=== PATIENT | male | born 1935 | race Caucasian/White ===

== ENCOUNTER → 2017-06-22 08:11 | Outpatient (CLI) | payer MEDICARE, SELFPAY ==
[2017-06-22 10:04] LABS: Hematocrit 45.6 % (40-54); Hemoglobin 15.8 g/dl (13.0-16.5); Mean Corp Hgb Conc 34.6 g/gl (32-36); Mean Corpuscular Hgb 31.5 pg (27.0-32.0); Platelet Count 201 K/mm3 (150-450); RBC Distribution Width CV 12.7 % (11.6-14.6); RBC Distribution Width SD 41.5 fl (35.1-43.9); Red Blood Count 5.01 M/mm3 (4.6-6.2); White Blood Count 5.5 K/mm3 (4.4-11.0)
[2017-06-22 10:06] LABS: International Normalized Ratio 0.9; Prothrombin Time (Protime)PT. 12.2 SECONDS (11.7-14.9)
[2017-06-22 10:08] LABS: Scan Indicated on CBC? Y/N NO
[2017-06-22 10:18] LABS: AST(SGOT) 17 U/L (15-37); Alanine Aminotransfer ALT/SGPT 28 U/L (16-61); Albumin, Serum 3.9 g/dL (3.2-5.0); Alkaline Phosphatase 83 U/L (45-117); Anion Gap 5 (5-15); BUN 25 mg/dL (7-18); BUN/Creat Ratio 24.5 RATIO (10-20); Bilirubin, Direct 0.12 mg/dL (0.00-0.30); Chloride 104 mmol/L (98-107); Cholesterol 196 mg/dL (200); Creatinine, Serum 1.02 mg/dL (0.70-1.30); EST Glomerular Filtration Rate 75 mL/min (>60); Est Glom Filt Rate - Afr Amer 90 mL/min (>60); Globulin 3.2 g/dL (2.2-4.2); Glucose 101 mg/dL (70-110); High Density Lipoprotein 33 mg/dL; Potassium 5.1 mmol/L (3.5-5.1); Protein, Total 7.1 g/dL (6.4-8.2); Sodium Level 140 mmol/L (136-145); Triglycerides 220 mg/dL; Very Low Density Lipoprotein 44 mg/dL (5-40)
== END ==
PROVIDERS: Family Provider Internal Medicine; PCP Internal Medicine; Visit Provider Internal Medicine Cardiovascular Disease
DX: E78.5 Hyperlipidemia, unspecified (principal); Z79.899 Other long term (current) drug therapy; R94.39 Abnormal result of other cardiovascular function study; R07.9 Chest pain, unspecified; R07.89 Other chest pain; I25.118 Atherosclerotic heart disease of native coronary artery with other forms of angina pectoris; Z95.5 Presence of coronary angioplasty implant and graft
CPT/HCPCS: 36415; 80048; 80061; 80076; 85027; 85610; 85730

== ENCOUNTER → 2018-01-16 08:17 | Outpatient (CLI) | payer MEDICARE, SELFPAY ==
[2018-01-16 10:44] LABS: AST(SGOT) 20 U/L (15-37); Alanine Aminotransfer ALT/SGPT 23 U/L (16-61); Albumin, Serum 3.9 g/dL (3.2-5.0); Alkaline Phosphatase 89 U/L (45-117); Bilirubin, Direct 0.08 mg/dL (0.00-0.30); Cholesterol 210 mg/dL (200); Globulin 3.2 g/dL (2.2-4.2); High Density Lipoprotein 30 mg/dL; Protein, Total 7.1 g/dL (6.4-8.2); Triglycerides 201 mg/dL; Very Low Density Lipoprotein 40 mg/dL (5-40)
== END ==
PROVIDERS: Nurse Practitioner Family; Family Provider Internal Medicine; PCP Internal Medicine; Visit Provider Internal Medicine Cardiovascular Disease
DX: E78.5 Hyperlipidemia, unspecified (principal); Z79.899 Other long term (current) drug therapy
CPT/HCPCS: 36415; 80061; 80076

== ENCOUNTER → 2018-03-10 08:28 | Outpatient (CLI) | payer MEDICARE, SELFPAY ==
[2018-03-10 11:10] LABS: AST(SGOT) 22 U/L (15-37); Alanine Aminotransfer ALT/SGPT 29 U/L (16-61); Albumin, Serum 3.9 g/dL (3.2-5.0); Alkaline Phosphatase 87 U/L (45-117); Bilirubin, Direct 0.15 mg/dL (0.00-0.30); Cholesterol 136 mg/dL (200); Globulin 3.1 g/dL (2.2-4.2); High Density Lipoprotein 32 mg/dL; Triglycerides 145 mg/dL; Very Low Density Lipoprotein 29 mg/dL (5-40)
== END ==
PROVIDERS: Physician Assistant Medical; Family Provider Internal Medicine; PCP Internal Medicine; Referring Provider Internal Medicine Cardiovascular Disease; Visit Provider Internal Medicine Cardiovascular Disease
DX: E78.5 Hyperlipidemia, unspecified (principal)
CPT/HCPCS: 80061; 80076

== ENCOUNTER → 2018-06-13 10:42 | Outpatient (CLI) | payer MEDICARE, SELFPAY ==
[2018-05-04 14:04] VITALS: BMI 22.7
--- NOTE | 2018-06-13 10:52 | RAD_ITS ---
STUDY: X-RAY CHEST REASON FOR EXAM: Male, 82 years old. Cough. Positive for the flu. TECHNIQUE: PA and lateral views of the chest. COMPARISON: None. FINDINGS: Hyperinflation. Decreased bilateral bronchovascular markings suggestive of emphysema. There is no demonstrated pleural abnormality. Normal size heart. Normal mediastinum and betty. There is prominence of the pulmonary hilar arteries without peripheral pulmonary vascular congestion, suggesting pulmonary hypertension. There is atherosclerotic calcification of the aortic arch with tortuosity. There are diffuse degenerative changes of the visualized thoracic spine. Normal visualized ribs, clavicles, and shoulders. There is no demonstrated abnormality of the visualized soft tissue structures of the upper abdomen. RAD/Chest PA and Lateral IMPRESSION: Hyperinflation. Electronically Signed: Jonas Elliott MD at 11:09 EST Tel [phone], Service support ,
--- OUTSIDE RECORDS SUMMARY | 2018-08-15 13:39 | XMS RPT_ITS ---
:1935 Author Organization [place] Care Team Providers Name Role Phone No Allen Attending Unavailable No Allen Consulting Unavailable Soumya Burgess Attending Unavailable Jojo García Referring Unavailable No Allen Attending Unavailable No Allen Referring Unavailable Jojo García Primary Care Unavailable Cade Kendrick Attending Unavailable Cade Kendrick Referring Unavailable Jojo García Primary Care Unavailable Jeane Macias Attending Unavailable Jeane Macias Attending Unavailable Soumya Burgess Attending Unavailable Jojo García Referring Unavailable Ricky, Jojo Primary Care Unavailable Cade Kendrick Attending Unavailable Cade Kendrick Referring Unavailable Jojo García Primary Care Unavailable Cade Kendrick Attending Unavailable Cade Kendrick Referring Unavailable Jojo García Primary Care Unavailable Soumya Burgess Attending Unavailable Jojo García Referring Unavailable Jojo García Primary Care Unavailable Purpose Purpose PROBLEMS PROBLEMS DATE TYPE CONDITION / CODE ATTENDING STATUS SOURCE 01/18/2018 Unknown E78.5 - Cade Kendrick Active [place] Hyperlipidemia, Community unspecified / Hospital E78.5(ICD-10) Repository 01/18/2018 Unknown 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 / Repository Z79.899(ICD-10) PROCEDURES PROCEDURES No Procedure Records FoundVITAL SIGNS VITAL SIGNS No Vital Signs Records FoundRESULTS RESULTS CHEST PA AND LATERAL Observed: 06/13/2018 Status: F Source: [place] 10:53 AM [facility] REPOSITORY [facility] Imaging Services [address] [place] [address] Chest PA and Lateral MR#: [id number] Acct: [id number] Name: ANDRÉSRYAN Kern Rep #: [id number] : 1935 M 82 From: Jonas Elliott MD PCP: Jojo García DO Status: REG CLI Study: Chest PA and Lateral Date of Exam: 06/13/18 Exam# [id number] Ordering Dr: No Allen VEHICLE REFINISHER-Leonardo STUDY: X-RAY CHEST REASON FOR EXAM: Male, 82 years old. Cough. Positive for the flu. TECHNIQUE: PA and lateral views of the chest. COMPARISON: None. FINDINGS: Hyperinflation. Decreased bilateral bronchovascular markings suggestive of emphysema. There is no demonstrated pleural abnormality. Normal size heart. Normal mediastinum and betty. There is prominence of the pulmonary hilar arteries without peripheral pulmonary vascular congestion, suggesting pulmonary hypertension. There is atherosclerotic calcification of the aortic arch with tortuosity. There are diffuse degenerative changes of the visualized thoracic spine. Normal visualized ribs, clavicles, and shoulders. There is no demonstrated abnormality of the visualized soft tissue structures of the upper abdomen. RAD/Chest PA and Lateral IMPRESSION: Hyperinflation. Electronically Signed: Jonas Elliott MD at 11:09 EST Tel [phone], Service support , CC: No Allen VEHICLE REFINISHER; Jojo García DO Blueprint Duplicator: Signed CARDIOLOGY VISIT Observed: 05/06/2018 Status: F Source: [place] REPORT 9:34 AM [facility] REPOSITORY [facility] [address] [place] [address] OFFICE VISIT Date of Service: 05/04/18 MR#: [id number] Acct: [id number] Name: RYAN BOWEN Rep #: [id number] : 1935 Provider: Soumya Burgess Age/Sex: 82/M Location: [facility] [place] Status: Signed HPI HPI Details: RYAN BOWEN, is a 82 M who presents to the office today for a cardiovascular follow-up. She is a history of coronary artery disease with stenting to his RCA in 2008. He also has a history of marked sinus bradycardia, aortic sclerosis, hypertension and hyperlipidemia. Patient had a stress test in May 2017 which demonstrated myocardial perfusion changes compatible with area of previous myocardial injury involving portions of the inferior basal septal, inferobasal segment segments with post stress-induced perfusion changes. Compatible with an area of quintin-infarct related to myocardial ischemia. Because of the chest discomfort that precipitated the event of the stress test it was recommended that he undergo a heart catheterization. Because he was able to walk 3-4 miles a day on the treadmill without any difficulty he declined heart catheterization. He wished to be managed medically if he had any symptoms he would let our office know. Pt sts that he has been active. He has been chopping wood and moving it in a wheel barrel with out any problems. He does not have any worsening SOB. He does occasionally have positional dizziness.He does not have any palpitations. He does not have any claudication or edema. Intake Vital Signs05/04/18 Height 5 ft 7 in 05/04/18 Weight: 145 lb 05/04/18 Body Mass Index (BMI) 22.7 05/04/18 Blood Pressure 124/72 H Intake Visit Reasons: 6 m Product Merchandiser Required: No Accompanied by: Is patient in pain?: No Allergies Sulfa (Sulfonamide Antibiotics) Adverse Reaction (Intermediate, Verified 05/04/18 14:09) nausea and vomiting isosorbide Adverse Reaction (Verified 05/04/18 14:09) FELIPE Medications aspirin 325 mg tablet 325 mg PO QDAY 05/25/17 [History Confirmed 05/04/18] cholecalciferol (vitamin D3) 400 unit capsule 400 unit PO QDAY 05/25/17 [History Confirmed 05/04/18] coenzyme Q10 100 mg capsule 100 mg PO QDAY 05/25/17 [History Confirmed 05/04/18] glucosamine sulfate 500 mg tablet 500 mg PO QDAY tab 05/25/17 [History Confirmed 05/04/18] magnesium oxide 400 mg capsule 400 mg PO QDAY cap 05/25/17 [History Confirmed 05/04/18] nitroglycerin 0.4 mg sublingual tablet 0.4 mg SUBLINGUAL Q5- 15M PRN #25 tab 05/25/17 [Rx Confirmed 05/04/18] omeprazole 20 mg capsule,delayed release 20 mg PO QDAY 05/25/17 [History Confirmed 05/04/18] zinc gluconate 100 mg tablet 100 mg PO QDAY tab 05/25/17 [History Confirmed 05/04/18] clopidogrel 75 mg tablet 75 mg PO QDAY #90 tab 01/25/18 [Rx Confirmed 05/04/18] lisinopril 10 mg tablet 10 mg PO BID #180 tab 01/25/18 [Rx Confirmed 05/04/18] pravastatin 80 mg tablet 80 mg PO QHS #90 tab 03/10/18 [Rx Confirmed 05/04/18] Ejection fraction %: 65 to 70 [facility] Medical History Asthma (Chronic) Aortic valve disease (Chronic) Sinus bradycardia (Chronic) Murmur (Chronic) Dyspnea, unspecified (Chronic) MCC use of drug (Chronic) Abnormal stress test (Chronic) Chest pain (Chronic) Hyperlipidemia (Chronic) Hypertension (Chronic) History of myocardial infarction (Chronic) Atherosclerotic heart disease of [place] coronary artery with other forms of angina pectoris (Chronic) Palpitations (Chronic) Chest pressure (Chronic) Anxiety (Chronic) GERD (gastroesophageal reflux disease) (Chronic) History of rheumatic fever (Chronic) Ventricular tachycardia (Chronic) Surgical History History of coronary artery stent placement (Chronic) History of tonsillectomy and adenoidectomy (Chronic) Family History Father CAD (coronary artery disease) Mother CAD (coronary artery disease) Myocardial infarction Social History Smoking Status: Never smoker alcohol intake: current alcohol intake frequency: 0-2 drinks per day Alcohol type: beer, wine substance use type: does not use caffeine: Yes Type: tea ROS Const Const: Negative for weakness, fatigue, fever(s) or headache(s) Eyes Eyes: Negative for blind spots, loss of peripheral vision or transient loss of vision ENT ENT: Negative for headache(s) Cardio Chest Pain: No Palpitations: No Edema: None Muscle aches with walking: None Resp Respiratory: Negative for SOB with activity, SOB at rest, SOB orthopnea\SOB lying down or Cough GI GI: Negative nausea, vomiting, heartburn or vomiting blood/hematemesis : Negative for hematuria Musc Musc: Negative for muscle aches/ myalgia Neuro Neuro: Negative for weakness or headache(s) Carlos Hematologic/Lymphatic: Negative for easy bleeding Endo Endo: Negative for fatigue Cardiology Exam Const Appearance: cooperative, no acute distress and well developed Orientation: alert, awake and oriented x3 Head Head: normocephalic and atraumatic Mouth: moist mucous membranes Eyes General: appearance normal, both eyes and all related structures Conjunctivae: conjunctivae normal Pupils: PERRL EOM: EOM intact bilaterally Neck Neck: normal visual inspection, no lymphadenopathy and no JVD Carotids: Negative bruit Neck Mass: Negative Neck mass Chest Chest inspection: normal inspection of the chest and symmetric chest movement Auscultation: Bilateral: Clear to Auscultation Cardio Palpation: normal PMI Rate: regular rate Rhythm: regular rhythm Heart sounds: S1 normal, S2 normal and murmur; negative rub or gallop Murmur: Grade 1/6, soft and mid systolic GI GI: normal to inspection, soft, no hepatosplenomegaly and bowel sounds present; negative tender Neuro General: alert, awake, oriented x3, CN's II-XI intact bilaterally and moves all extremities Extremities Pulses: Normal: Right Posterior Tibial Pulse, Left Posterior Tibial Pulse, Right Radial Pulse, Left Radial Pulse Lower Extremity Edema: None: Bilateral Psych Psychological: normal affect Assessment AND Plan 1. Atherosclerotic heart disease of [place] coronary artery with other forms of angina pectoris I25.118 ANDREY to RCA 10/28/[address] Loomis Plan Stable, from a cardiac standpoint patient does not have any symptoms of angina. We recommend that they continue with current aggressive medical management and risk factor modification. 2. Essential hypertension I10 Plan Blood pressure is well controlled on current medications, we do not recommend any changes at this time. 3. Pure hypercholesterolemia E78.00 Plan Recent lipid profile demonstrates total cholesterol 136, HDL 32, LDL 75. Patient will continue with current high intensity statin. We will continue to monitor. Plan Detail Additional Comments Thank you for allowing us to participate in patient's plan of care, if you have any questions please do not hesitate to call. This note was generated using a voice recognition system and there may be incorrect words, spelling or punctuation errors that were not noted when reviewing the office note prior to saving. Follow Up 05/04/18 (keep as is) Coding Level of Care Code Off vis,est,level 3 Diagnoses Atherosclerotic heart disease of [place] coronary artery with other forms of angina pectoris I25.118 Essential hypertension I10 Hypertension type: essential hypertension Pure hypercholesterolemia E78.00 Hyperlipidemia type: pure hypercholesterolemia Coding Level of Care Code Off vis,est,level 3 Diagnoses Atherosclerotic heart disease of [place] coronary artery with other forms of angina pectoris I25.118 Essential hypertension I10 Hypertension type: essential hypertension Pure hypercholesterolemia E78.00 Hyperlipidemia type: pure hypercholesterolemia 05/06/18 0934 <Electronically signed by Soumya DARLING> Date Soumya DARLING [facility] Signature: Date (if applicable) CC: Jojo García DO LIVER PROFILE Collected: 03/10/2018 Status: F Source: [place] 8:54 AM [facility] REPOSITORY Order Comment: Comments: resumed Pravastatin Comments: Resumed Pravastatin Comments: resumed Pravastatin TYPE CODE TESTS RESULT OUT OF RANGE REFERENCE UNITS LAB L501.1500 6.4-8.2 g/dL Normal T PROT 7.0 LAB L501.1800 3.2-5.0 g/dL Normal ALB 3.9 LAB L501.1950 2.2-4.2 g/dL Normal GLOB 3.1 LAB L501.4100 15-37 U/L Normal AST 22 LAB L501.4305 45-117 U/L Normal ALK P 87 LAB L501.4405 16-61 U/L Normal ALT 29 LAB L501.4600 0.20-1.00 mg/dL Normal T BILI 0.70 LAB L501.4700 0.00-0.30 mg/dL Normal D BILI 0.15 Performed By: #### L500.3400, L500.4100 #### [facility] [address] [facility] [place], [place], [id number] LIPID PROFILE Collected: 03/10/2018 Status: F Source: [place] 8:54 AM [facility] REPOSITORY Order Comment: Comments: resumed Pravastatin Comments: Resumed Pravastatin Comments: resumed Pravastatin TYPE CODE TESTS RESULT OUT OF RANGE REFERENCE UNITS LAB L501.4900 200 mg/dL Normal CHOL 136 Result Comment: <200 mg/dL Desirable 200-240 mg/dL Borderline >240 mg/dL High Risk LAB L501.5000 mg/dL Normal TRIG 145 Result Comment: The drugs N-Acetylcysteine and Metamizole may falsely depress this assay. Serum Triglycerides Reference Interval Normal <150 mg/dL Borderline high 150 - 199 mg/dL High 200 - 499 mg/dL Very High > or = 500 mg/dL LAB L501.6400 mg/dL Low HDL 32 Result Comment: The drugs N-Acetylcysteine and Metamizole may falsely depress this assay. Reference Range HDL <40 mg/dL Low HDL Cholesterol HDL >or= 60 mg/dL High HDL Cholesterol LAB L501.6500 0-130 mg/dL Normal LDL 75 LAB L501.6600 5-40 mg/dL Normal VLDL 29 Performed By: #### L500.3400, L500.4100 #### [facility] [address] [place], [place], [address] LIVER PROFILE Collected: 01/16/2018 Status: F Source: [place] 8:21 AM [facility] REPOSITORY TYPE CODE TESTS RESULT OUT OF RANGE REFERENCE UNITS LAB L501.1500 6.4-8.2 g/dL Normal T PROT 7.1 LAB L501.1800 3.2-5.0 g/dL Normal ALB 3.9 LAB L501.1950 2.2-4.2 g/dL Normal GLOB 3.2 LAB L501.4100 15-37 U/L Normal AST 20 LAB L501.4305 45-117 U/L Normal ALK P 89 LAB L501.4405 16-61 U/L Normal ALT 23 LAB L501.4600 0.20-1.00 mg/dL Normal T BILI 0.50 LAB L501.4700 0.00-0.30 mg/dL Normal D BILI 0.08 Performed By: #### L500.3400, L500.4100 #### [facility] [address] [place], [place], [address] LIPID PROFILE Collected: 01/16/2018 Status: F Source: [place] 8:21 AM [facility] REPOSITORY TYPE CODE TESTS RESULT OUT OF RANGE REFERENCE UNITS LAB L501.4900 200 mg/dL High CHOL 210 Result Comment: <200 mg/dL Desirable 200-240 mg/dL Borderline >240 mg/dL High Risk LAB L501.5000 mg/dL High TRIG 201 Result Comment: The drugs N-Acetylcysteine and Metamizole may falsely depress this assay. Serum Triglycerides Reference Interval Normal <150 mg/dL Borderline high 150 - 199 mg/dL High 200 - 499 mg/dL Very High > or = 500 mg/dL LAB L501.6400 mg/dL Low HDL 30 Result Comment: The drugs N-Acetylcysteine and Metamizole may falsely depress this assay. Reference Range HDL <40 mg/dL Low HDL Cholesterol HDL >or= 60 mg/dL High HDL Cholesterol LAB L501.6500 0-130 mg/dL High LDL 140 LAB L501.6600 5-40 mg/dL Normal VLDL 40 Performed By: #### L500.3400, L500.4100 #### [facility] [address] [place], [address] CARDIOLOGY VISIT Observed: 10/12/2017 Status: F Source: [place] REPORT 5:04 PM [facility] REPOSITORY [facility] [address] [place] [address] OFFICE VISIT Date of Service: 10/11/17 MR#: [id number] Acct: [id number] Name: RYAN BOWEN Rep #: [id number] : 1935 Provider: Soumya Burgess Age/Sex: 81/M Location: [facility] [place] Status: Signed HPI HPI Details: RYAN BOWEN, is a 81 M who presents to the office today for a cardiovascular follow-up. She is a history of coronary artery disease with stenting to his RCA in 2008. He also has a history of marked sinus bradycardia, aortic sclerosis, hypertension and hyperlipidemia. Patient had a stress test in May 2017 which demonstrated myocardial perfusion changes compatible with area of previous myocardial injury involving portions of the inferior basal septal, inferobasal segment segments with post stress-induced perfusion changes. Compatible with an area of quintin-infarct related to myocardial ischemia. Because of the chest discomfort that precipitated the event of the stress test it was recommended that he undergo a heart catheterization. Because he was able to walk 3-4 miles a day on the treadmill without any difficulty he declined heart catheterization. He wished to be managed medically if he had any symptoms he would let our office know. He sts that he is walking on the treadmill every day, but his has been having issues with is knee, He is also adding the nu step. He is concerned about the pravastatin, he sts that is causes nausea, pain under his right rib, and feeling a water ballon was there when he walked on the treadmill. He has not been taking it for several months. His symptoms improved. He sts that when he resumed the medication it for 2 day, his symptoms came back. He has since stopped and has not had symptoms. He had a FELIPE with his isosorbide, he has since stopped taking this also. This has been a few months also. He does not have any worsening SOB. He has not had any chest pain/heaviness/tightness. He does not have any palpitations that he is aware of. He does not have any near syncope/syncope. He does not have any edema or claudication. Intake Vital Signs10/11/17 Height 5 ft 7 in 10/11/17 Weight: 144 lb 10/11/17 Body Mass Index (BMI) 22.5 10/11/17 Blood Pressure 148/80 10/11/17 Blood Pressure Location Lt brachial Intake Visit Reasons: 6 M Product Merchandiser Required: No Accompanied by: Is patient in pain?: No Allergies pravastatin Adverse Reaction (Intermediate, Verified 10/11/17 15:38) Abd cramps/diarrhea Sulfa (Sulfonamide Antibiotics) Adverse Reaction (Intermediate, Verified 10/11/17 15:04) nausea and vomiting isosorbide Adverse Reaction (Verified 10/11/17 15:38) FELIPE Medications aspirin 325 mg tablet 325 mg PO QDAY 05/25/17 [History Confirmed 10/11/17] cholecalciferol (vitamin D3) 400 unit capsule 400 unit PO QDAY 05/25/17 [History Confirmed 10/11/17] clopidogrel 75 mg tablet 75 mg PO QDAY 05/25/17 [History Confirmed 10/11/17] coenzyme Q10 100 mg capsule 100 mg PO QDAY 05/25/17 [History Confirmed 10/11/17] glucosamine sulfate 500 mg tablet 500 mg PO QDAY tab 05/25/17 [History Confirmed 10/11/17] lisinopril 10 mg tablet 10 mg PO BID #180 tab 05/25/17 [Rx Confirmed 10/11/17] magnesium oxide 400 mg capsule 400 mg PO QDAY cap 05/25/17 [History Confirmed 10/11/17] nitroglycerin 0.4 mg sublingual tablet 0.4 mg SUBLINGUAL Q5- 15M PRN #25 tab 05/25/17 [Rx Confirmed 10/11/17] omeprazole 20 mg capsule,delayed release 20 mg PO QDAY 05/25/17 [History Confirmed 10/11/17] zinc gluconate 100 mg tablet 100 mg PO QDAY tab 05/25/17 [History Confirmed 06/16/17] Ejection fraction %: 65 to 70 (65% [facility] 03[facility]31[facility]2010 [facility] Medical History Asthma (Chronic) Aortic valve disease (Chronic) Sinus bradycardia (Chronic) Murmur (Chronic) Dyspnea, unspecified (Chronic) MCC use of drug (Chronic) Abnormal stress test (Chronic) Chest pain (Chronic) Hyperlipidemia (Chronic) Hypertension (Chronic) History of myocardial infarction (Chronic) Atherosclerotic heart disease of [place] coronary artery with other forms of angina pectoris (Chronic) Palpitations (Chronic) Chest pressure (Chronic) Anxiety (Chronic) GERD (gastroesophageal reflux disease) (Chronic) History of rheumatic fever (Chronic) Ventricular tachycardia (Chronic) Surgical History History of coronary artery stent placement (Chronic) History of tonsillectomy and adenoidectomy (Chronic) Family History Father CAD (coronary artery disease) Mother CAD (coronary artery disease) Myocardial infarction Social History Smoking Status: Never smoker alcohol intake: current alcohol intake frequency: 0-2 drinks per day Alcohol type: beer, wine substance use type: does not use ROS Const Const: Positive for headache(s); negative for weakness, fatigue or fever(s) Eyes Eyes: Negative for blind spots, loss of peripheral vision or transient loss of vision ENT ENT: Positive for headache(s); negative for dizziness, tinnitus or Nosebleed/epistaxis Cardio Chest Pain: No Palpitations: No Edema: None Muscle aches with walking: None Resp Respiratory: Negative for SOB with activity, SOB at rest, SOB orthopnea\SOB lying down or Cough GI GI: Positive for nausea; negative vomiting, heartburn or vomiting blood/hematemesis : Negative for hematuria Musc Musc: Negative for muscle aches/ myalgia Neuro Neuro: Positive for headache(s); negative for weakness, dizziness, near syncope, syncope, lightheadedness or orthostatic symptoms Carlos Hematologic/Lymphatic: Negative for easy bleeding Endo Endo: Negative for fatigue Cardiology Exam Const Appearance: cooperative, no acute distress and well developed Orientation: alert, awake and oriented x3 Head Head: normocephalic and atraumatic Mouth: moist mucous membranes Eyes General: appearance normal, both eyes and all related structures Conjunctivae: conjunctivae normal Pupils: PERRL EOM: EOM intact bilaterally Neck Neck: normal visual inspection, no lymphadenopathy and no JVD Carotids: Negative bruit Neck Mass: Negative Neck mass Chest Chest inspection: normal inspection of the chest and symmetric chest movement Auscultation: Bilateral: Clear to Auscultation Cardio Palpation: normal PMI Rate: regular rate Rhythm: regular rhythm Heart sounds: S1 normal, S2 normal and murmur; negative rub or gallop Murmur: Grade 1/6, soft and mid systolic GI GI: normal to inspection, soft, no hepatosplenomegaly and bowel sounds present; negative tender Neuro General: alert, awake, oriented x3, CN's II-XI intact bilaterally and moves all extremities Extremities Pulses: Normal: Right Posterior Tibial Pulse, Left Posterior Tibial Pulse, Right Radial Pulse, Left Radial Pulse Lower Extremity Edema: None: Bilateral Psych Psychological: normal affect Assessment AND Plan 1. Atherosclerosis of [place] coronary artery of [place] heart without angina pectoris I25.10 Plan Patient does keep himself very active. He does not have any symptoms of angina. He will let us know if he has any symptoms. Did review symptoms to look for. Will not make any adjustments at this time. 2. Essential hypertension I10 Plan Blood pressure is well controlled on current medications, we do not recommend any changes at this time. 3. Pure hypercholesterolemia E78.00 Plan Patient has been intolerant to pravastatin. He would like to see what his lipids are at his next check. If they are elevated he is agreeable to try another medication. Will monitor closely. 4. Aortic valve disease I35.9 Plan Stable, will continue to monitor by history, exam and echocardiograms as deemed appropriate. Plan Detail Additional Comments Thank you for allowing us to participate in patient's plan of care, if you have any questions please do not hesitate to call. This note was generated using a voice recognition system and there may be incorrect words, spelling or punctuation errors that were not noted when reviewing the office note prior to saving. Follow Up 6 Months (MMM) 1 Year (PFM) Coding Level of Care Code Off vis,est,level 3 Diagnoses Atherosclerosis of [place] coronary artery of [place] heart without angina pectoris I25.10 [place] vs. transplanted heart: [place] heart Essential hypertension I10 Hypertension type: essential hypertension Pure hypercholesterolemia E78.00 Hyperlipidemia type: pure hypercholesterolemia Aortic valve disease I35.9 Coding Level of Care Code Off vis,est,level 3 Diagnoses Atherosclerosis of [place] coronary artery of [place] heart without angina pectoris I25.10 [place] vs. transplanted heart: [place] heart Essential hypertension I10 Hypertension type: essential hypertension Pure hypercholesterolemia E78.00 Hyperlipidemia type: pure hypercholesterolemia Aortic valve disease I35.9 10/12/17 1354 <Electronically signed by Soumya DARLING> Date Soumya Hale Signature: Date (if applicable) CC: Jojo García CBC-COMPLETE BLOOD CNT Collected: 06/22/2017 Status: F Source: [place] NO DIFF 8:27 AM [facility] REPOSITORY TYPE CODE TESTS RESULT OUT OF RANGE REFERENCE UNITS LAB L100.1000 4.4-11.0 K/mm3 Normal WBC 5.5 LAB L100.1200 4.6-6.2 M/mm3 Normal RBC 5.01 LAB L100.1300 13.0-16.5 g/dl Normal HGB 15.8 LAB L100.1400 40-54 % Normal HCT 45.6 LAB L100.1500 80-94 fL Normal MCV 91.0 LAB L100.1600 27.0-32.0 pg Normal MCH 31.5 LAB L100.1700 32-36 g/gl Normal MCHC 34.6 LAB L100.1810 11.6-14.6 % Normal RDW CV 12.7 LAB L100.1820 35.1-43.9 fl Normal RDW SD 41.5 LAB L100.1900 150-450 K/mm3 Normal PLT 201 LAB L100.2000 6.2-12.0 fl Normal MPV 11.0 Performed By: #### L100.0500, L300.3900, L300.4310 #### [facility] [address] [place], [place], [id number] PROTHROMBIN TIME W/INR Collected: 06/22/2017 Status: F Source: [place] 8:27 AM [facility] REPOSITORY TYPE CODE TESTS RESULT OUT OF RANGE REFERENCE UNITS LAB L300.4150 11.7-14.9 SECONDS Normal PROTIME 12.2 LAB L300.4200 Normal INR 0.9 Performed By: #### L100.0500, L300.3900, L300.4310 #### [facility] [address] [place], [place], [id number] PARTIAL THROMBOPLAST Collected: 06/22/2017 Status: F Source: [place] TIME 8:27 AM [facility] REPOSIT[facility] TYPE CODE TESTS RESULT OUT OF RANGE REFERENCE UNITS LAB L300.4310 24.1-36.2 Seconds Normal PTT 27.0 Performed By: #### L100.0500, L300.3900, L300.4310 #### [facility] [address] [place], [place], [address] BASIC METABOLIC Collected: 06/22/2017 Status: F Source: [place] PROFILE (BMP) 8:27 AM [facility] REPOSITORY Order Comment: Order Date: 11/19/16 Order Info: 0788-1 - *Hepatic Function Panel Order Info: 89587-6 - *Lipid Profile CC PCP Comments: 12 hours fasting, may have water. TYPE CODE TESTS RESULT OUT OF RANGE REFERENCE UNITS LAB L501.0100 70-110 mg/dL Normal GLU 101 LAB L501.1000 7-18 mg/dL High BUN 25 LAB L501.1100 0.70-1.30 mg/dL Normal 1.02 CREAT,SERUM Result Comment: The validity of the calculated GFR AND GFRAA in patients over 70 years has not been determined. Clinical correlation is essential. LAB L501.1110 >60 mL/min Normal EST GFR 75 Result Comment: Non- GFR Calc LAB L501.1115 >60 mL/min Normal EST GFR - AA 90 Result Comment: GFR Calc LAB L501.1300 10-20 RATIO High BUN/CRE 24.5 LAB L501.2200 8.5-10.1 mg/dL CA Normal 9.0 LAB L501.5300 136-145 mmol/L NA Normal 140 LAB L501.5600 3.5-5.1 mmol/L K Normal 5.1 LAB L501.5900 98-107 mmol/L CL Normal 104 LAB L501.6100 21.0-32.0 mmol/L Normal CO2 31.0 LAB L501.6200 5-15 Normal GAP 5 Performed By: #### L500.2500 #### [facility] [address] [place], [address] LIVER PROFILE Collected: 06/22/2017 Status: F Source: DEVANTE 8:27 AM [facility] REPOSITORY Order Comment: Order Date: 11/19/16 Order Info: 0788-1 - *Hepatic Function Panel Order Info: [id number] - *Lipid Profile CC PCP Comments: 12 hours fasting, may have water. TYPE CODE TESTS RESULT OUT OF RANGE REFERENCE UNITS LAB L501.1500 6.4-8.2 g/dL Normal T PROT 7.1 LAB L501.1800 3.2-5.0 g/dL Normal ALB 3.9 LAB L501.1950 2.2-4.2 g/dL Normal GLOB 3.2 LAB L501.4100 15-37 U/L Normal AST 17 LAB L501.4305 45-117 U/L Normal ALK P 83 LAB L501.4405 16-61 U/L Normal ALT 28 Result Comment: Please note revised ALT reference range effective 2017. LAB L501.4600 0.20-1.00 mg/dL Normal T BILI 0.50 LAB L501.4700 0.00-0.30 mg/dL Normal D BILI 0.12 Performed By: #### L500.3400 #### [facility] [address] [place], [address] LIPID PROFILE Collected: 06/22/2017 Status: F Source: DEVANTE 8:27 AM [facility] REPOSITORY Order Comment: Order Date: 11/19/16 Order Info: 0788-1 - *Hepatic Function Panel Order Info: 05280-9 - *Lipid Profile CC PCP Comments: 12 hours fasting, may have water. TYPE CODE TESTS RESULT OUT OF RANGE REFERENCE UNITS LAB L501.4900 200 mg/dL Normal CHOL 196 Result Comment: <200 mg/dL Desirable 200-240 mg/dL Borderline >240 mg/dL High Risk LAB L501.5000 mg/dL High TRIG 220 Result Comment: The drugs N-Acetylcysteine and Metamizole may falsely depress this assay. Serum Triglycerides Reference Interval Normal <150 mg/dL Borderline high 150 - 199 mg/dL High 200 - 499 mg/dL Very High > or = 500 mg/dL LAB L501.6400 mg/dL Low HDL 33 Result Comment: The drugs N-Acetylcysteine and Metamizole may falsely depress this assay. Reference Range HDL <40 mg/dL Low HDL Cholesterol HDL >or= 60 mg/dL High HDL Cholesterol LAB L501.6500 0-130 mg/dL Normal LDL 119 LAB L501.6600 5-40 mg/dL High VLDL 44 Performed By: #### L500.4100 #### [facility] [address] [place], [address] CARDIOLOGY VISIT Observed: 06/20/2017 Status: F Source: [place] REPORT 6:14 PM [facility] REPOSITORY [facility] [address] [place] [address] OFFICE VISIT Date of Service: 06/14/17 MR#: [id number] Acct: [id number] Name: RYAN BOWEN Rep #: [id number] : 1935 Provider: Soumya Burgess Age/Sex: 81/M Location: [facility] Status: Signed HPI per MMM: Details: RYAN BOWEN, is a 81 M who presents to the office today for for an updated history and physical for heart catheterization. Patient has a history of coronary artery disease with stenting to his RCA in 2008, marked sinus bradycardia, aortic valve sclerosis, hypertension and hyperlipidemia. Stress test done in May 2016 demonstrated myocardial perfusion changes compatible with area of previous myocardial injury involving portions of the inferior basal septal, inferobasal segment segments with post stress-induced perfusion changes. Compatible with an area of quintin-infarct related to myocardial ischemia. Holter monitor demonstrated sinus rhythm with sinus arrhythmia. Because the patient's symptoms of chest discomfort that precipitated the event of the stress test it was recommended that he undergo a diagnostic heart catheterization. Patient is able to exercise at home on a treadmill for 3-4 miles without any difficulty. He states over the last year he has walked over 100 miles and has not had any symptoms of chest discomfort during this time. I did question him at length regarding when he uses his nitroglycerin. He states that he uses this for a brief few second chest discomfort he was also encouraged to use his nitroglycerin under the instruction of his when he complained of chest discomfort. He does not have any palpitations that he is aware of. He does not have any worsening shortness of breath. He does not have any lightheadedness or dizziness. He does not have any lower extremity edema. Intake Intake Visit Reasons: per MMM Allergies Sulfa (Sulfonamide Antibiotics) Adverse Reaction (Intermediate, Verified 05/25/17 11:03) nausea and vomiting Medications aspirin 325 mg tablet 325 mg PO QDAY 05/25/17 [History Confirmed 06/14/17] cholecalciferol (vitamin D3) 400 unit capsule 400 unit PO QDAY 05/25/17 [History Confirmed 06/14/17] clopidogrel 75 mg tablet 75 mg PO QDAY 05/25/17 [History Confirmed 06/14/17] coenzyme Q10 100 mg capsule 100 mg PO QDAY 05/25/17 [History Confirmed 06/14/17] glucosamine sulfate 500 mg tablet 500 mg PO QDAY tab 05/25/17 [History Confirmed 06/14/17] isosorbide mononitrate ER 30 mg tablet,extended release 24 hr 30 mg PO QAM #30 tab 05/25/17 [Rx Confirmed 06/14/17] lisinopril 10 mg tablet 10 mg PO BID #180 tab 05/25/17 [Rx Confirmed 06/14/17] magnesium oxide 400 mg capsule 400 mg PO QDAY cap 05/25/17 [History Confirmed 06/14/17] nitroglycerin 0.4 mg sublingual tablet 0.4 mg SUBLINGUAL Q5- 15M PRN #25 tab 05/25/17 [Rx Confirmed 06/14/17] omeprazole 20 mg capsule,delayed release 20 mg PO QDAY 05/25/17 [History Confirmed 06/14/17] pravastatin 80 mg tablet 80 mg PO QHS 05/25/17 [History Confirmed 06/14/17] zinc gluconate 100 mg tablet 100 mg PO QDAY tab 05/25/17 [History Confirmed 06/14/17] PFSH Medical History Abnormal stress test (Acute) Chest pain (Acute) Hyperlipidemia (Chronic) Hypertension (Chronic) History of myocardial infarction (Chronic) Atherosclerotic heart disease of [place] coronary artery with other forms of angina pectoris (Acute) History of coronary artery stent placement (Chronic) Palpitations (Acute) Chest pressure (Acute) ROS Const Const: Negative for weakness, fatigue, fever(s) or headache(s) Eyes Eyes: Negative for blind spots, loss of peripheral vision or transient loss of vision ENT ENT: Negative for headache(s), Negative for dizziness, Negative for tinnitus, Negative for Nosebleed/epistaxis Cardio Chest Pain: Yes (See HPI) Palpitations: Positive for No Edema: None Muscle aches with walking: None Resp Respiratory: Negative for SOB with activity, SOB at rest or SOB orthopnea\SOB lying down GI GI: Negative nausea, vomiting, heartburn or vomiting blood/hematemesis : Negative for hematuria Musc Musc: Negative for muscle aches/ myalgia Neuro Neuro: Negative for weakness, Negative for headache(s), Negative for dizziness, Negative for near syncope, Negative for syncope, Negative for lightheadedness Carlos Hematologic/Lymphatic: Negative for easy bleeding Endo Endo: Negative for fatigue Cardiology Exam Const Appearance: cooperative, no acute distress and well developed Orientation: alert, awake and oriented x3 Head Head: normocephalic and atraumatic Mouth: moist mucous membranes Eyes General: appearance normal, both eyes and all related structures Conjunctivae: conjunctivae normal Pupils: PERRL EOM: EOM intact bilaterally Neck Neck: normal visual inspection, no lymphadenopathy and no JVD Carotids: Negative bruit Neck Mass: Negative Neck mass Chest Chest inspection: normal inspection of the chest and symmetric chest movement Auscultation: Bilateral: Clear to Auscultation Cardio Palpation: normal PMI Rate: regular rate Rhythm: regular rhythm Heart sounds: S1 normal, S2 normal and murmur; negative rub or gallop Murmur: Grade 1/6, soft and mid systolic GI GI: normal to inspection, soft, no hepatosplenomegaly and bowel sounds present; negative tender Neuro General: alert, awake, oriented x3, CN's II-XI intact bilaterally and moves all extremities Extremities Pulses: Normal: Right Posterior Tibial Pulse, Left Posterior Tibial Pulse, Right Radial Pulse, Left Radial Pulse Lower Extremity Edema: None: Bilateral Psych Psychological: normal affect Assessment AND Plan 1. Atherosclerotic heart disease of [place] coronary artery with other forms of angina pectoris I25.118 ANDREY to RCA 10/28/[address] Vladislav Hardwick - LISSET Farmer Did have a long discussion with patient regarding heart catheterization and his symptoms. Patient would like to wait to see if he has any worsening symptoms. He feels that since he has excellent exercise tolerance that he does not need us heart catheterization at this time. He is agreeable to let us know if his symptoms worsen. He is agreeable to let us know if he uses his nitroglycerin more frequently. Will monitor patient closely. 2. Essential hypertension I10 Plan - LISSET Farmer Blood pressure is well controlled on current medications, we do not recommend any changes at this time. 3. Pure hypercholesterolemia E78.00; E78.0 Plan - LISSET Farmer Patient will continue with current medications. 4. Palpitations R00.2 Plan - LISSET Farmer Did review Holter monitor with patient. He feels that his sickness symptoms are not significant. We will continue to monitor. Plan Detail Additional Comments - LISSET Farmer The above patient was discussed with Dr. Kendrick, he agrees with plan of care. Thank you for allowing us to participate in patient's plan of care, if you have any questions please do not hesitate to call. This note was generated using a voice recognition system and there may be incorrect words, spelling or punctuation errors that were not noted when reviewing the office note prior to saving. Follow Up 06/14/17 (Keep as is) 06/14/17 (Cancel appt with [facility] next month, cancel heart cath for next week) Coding Level of Care Code Off vis,est,level 4 Diagnoses Atherosclerotic heart disease of [place] coronary artery with other forms of angina pectoris I25.118 Essential hypertension I10 Hypertension type: essential hypertension Pure hypercholesterolemia E78.00; E78.0 Hyperlipidemia type: pure hypercholesterolemia Palpitations R00.2 06/15/171838 <Electronically signed by Soumya DARLING> Date Soumya DARLING 06/20/171813<Electronically signed by Cade Kendrick MD> Cosigner Signature: Date (if applicable) Cade Kendrick MD CC: Jojo García DO ALLERGIES ALLERGIES DATE TYPE / CODE NAME / CODE REACTION SEVERITY SOURCE 05/04/2018 Drug Sulfa NAUSEA AND [facility]/4160 (Sulfonamide VOMITING Hospital 49399(SNOMED Antibiotics)/ Repository CT) [id number](RX NORM) 05/04/2018 Drug isosorbide/F0 FELIPE Unknown [facility]/4160 74975533(RXNO Hospital 46817(SNOMED RM) Repository CT) 10/11/2017 Drug pravastatin/F Abd MO [facility]/4160 514500700(RXN cramps/diarrhea Hospital 72573(SNOMED ORM) Repository CT) ENCOUNTERS ENCOUNTERS ADMIT/DISCHARGE ACCOUNT ADMITTING ENCOUNTER LOCATION SOURCE NUMBER CLASS 06/16/2018 [id number] Ambulatory Building:[facility] Repository 06/13/2018 [id number] Ambulatory [place] 7 [facility] ing:HPRAD Repository 05/04/2018/ [id number] Ambulatory BMSBuilding:B [place] [facility] 9 [facility] Repository 03/10/2018 [id number] Ambulatory [place] 6 [facility] Hospital ing:MTLAB Repository 01/16/2018 [id number] Ambulatory [place] 2 [facility] Hospital ing:MTLAB Repository 10/11/2017/ [id number] Ambulatory BMSBuilding:B [place] 8 6 [facility] Repository 10/04/2017 [id number] Ambulatory BMS [place] 8 [facility] Repository 09/08/2017 [id number] Ambulatory BMS [place] 4 [facility] Repository 06/22/2017 [id number] Ambulatory [place] 7 [facility] Hospital ing:MTLAB Repository 06/14/2017/ [id number] Ambulatory BMSBuilding:B [place] [facility] 6 [facility] Repository FUNCTIONAL STATUS FUNCTIONAL STATUS No Functional Status Records FoundEQUIPMENT EQUIPMENT No Equipment Records FoundPAYERS PAYERS ENCOUNTER GUARANTOR PAYER SUBSCRIBER SOURCE 06/16/2018 [facility] Primary [facility] OHIP Practices WinklerB: Insurance:[employer] Life WinklerDOB: Repository Ins/MedicarePolicy [id number] [facility] Number: [address] [place], [place] [id number] [place], [place] [address]Yiq: (330) Date:4627-63-31Vnkw 12[address]Mvo: (HP) Name: [phone] (HP) [id number] Moreno [id number]: 06/13/2018 RYAN S Primary RYAN Lynnoster [id number] Insurance:AETNA WINKLERDOB: [facility] Number: [id number] [id number] Repository [address]Ryc: (330) Date:7780-67-21[phone] (HP) 916714JELATASHA MORENO [address]VL: 06/13/2018 Secondary NOT GIVENUNK [place] Insurance:SELF PAY [facility] Number: Effective Repository Date:2018-06-13 05/04/2018 RYAN S Primary RYAN Kern [place] [id number] Insurance:AETNA WINKLERDOB: [facility] Number: [id number] [id number] Repository [address]Rga: (330) Date:6189-79-32[phone] (HP) 132454JFLATASHA MORENO [phone]: 05/04/2018 Secondary NOT GIVENUNK [place] Insurance:SELF PAY [facility] Number: Effective Repository Date:2018-05-04 03/10/2018 RYAN S Primary RYAN S [place] [id number] Insurance:AETNA WINKLERDOB: [facility] Number: [id number] [id number] Repository [address]Mbw: (330) Date:9392-73-04[phone] (HP) 107798JCLATASHA MORENO [phone]: 03/10/2018 Secondary NOT GIVENUNK [place] Insurance:SELF PAY [facility] Hospital Number: Effective Repository Date:2018-03-10 01/16/2018 RYAN S Primary RYAN S [place] [id number] Insurance:AETNA WINKLERDOB: [facility] Number: [id number] [id number] Repository [address]Kot: ([phone]) Date:0831-44-12[phone] ([place]) [id number] [address]JX: 01/16/2018 Secondary NOT GIVENUNK [place] Insurance:SELF PAY [facility] Hospital Number: Effective Repository Date:2018-01-16 10/11/2017 RYAN S Primary RYAN S [place] [id number] Insurance:AETNA WINKLERDOB: [facility] Number: [id number] [id number] Repository [address]Yjl: (330) Date:6473-25-39[phone] (HP) [phone] [address]JP: 10/11/2017 Secondary NOT GIVENUNK [place] Insurance:SELF PAY [facility] Number: Effective Repository Date:2017-05-02 10/04/2017 RYAN S Primary RYAN S [place] [id number] Insurance:AETNA WINKLERDOB: [facility] Number: [id number] [place] [id number] Repository [address]Seg: (330) Date:4019-85-49[phone] (HP) 577[place] [address]LV: 10/04/2017 Secondary NOT GIVENUNK [place] Insurance:SELF PAY [facility] Hospital Number: Effective Repository Date:2017-10-04 09/08/2017 RYAN S Primary RYAN S [place] [id number] Insurance:AETNA WINKLERDOB: [facility] Number: [id number] [place], [place] [id number] Repository [address]Htl: (330) Date:1572-89-64[phone] (HP) [id number] [place] [address]AN: 09/08/2017 Secondary NOT GIVENUNK [place] Insurance:SELF PAY [facility] Number: Effective Repository Date:2017-09-08 06/22/2017 RYAN S Primary RYAN S [place] [id number] Insurance:AETNA LUCYKLERDOB: [facility] Number: [id number] [place] [id number] Repository [address]Guh: (330) Date:1170-53-04[phone] (HP) [id number] [place] [address]HB: 06/22/2017 Secondary NOT GIVENUNK [place] Insurance:SELF PAY [facility] Number: Effective Repository Date:2017-06-22 06/14/2017 RYAN S Primary RYAN S [place] [id number] Insurance:AETNA DEBBIEERDOB: [facility] Number: [id number] [id number] Repository [address]Iif: (330) Date:8692-89-65UQ [phone] (HP) [id number] [place] [address]GP: 06/14/2017 Secondary NOT GIVENUNK [place] Insurance:SELF PAY [facility] Number: Effective Repository Date:2017-06-14 SOCIAL HISTORY SOCIAL HISTORY No Social History Records FoundFAMILY HISTORY FAMILY HISTORY No Family History Records FoundPREGNANCY No Status Records FoundADVANCE DIRECTIVES ADVANCE DIRECTIVES No Advanced Directives Records FoundINFORMATION SOURCE INFORMATION SOURCE DATE CREATED AUTHOR AUTHOR'S ORGANIZATION 06/18/2018 DAMIAN
--- OUTSIDE RECORDS SUMMARY | 2018-08-15 13:39 | XMS RPT_ITS | Continuity of Care Document ---
:1935 Author Organization [facility] Address [address] [facility] [address] [place] [address] Phone Care Team Providers Name Role Phone No Allen CNP Unavailable Santo Looney Unavailable Unavailable Unavailable Unavailable Problems Name Dates Details BMI 22.0-22.9, adult (Z68.22, V85.1) Status: Active Chills (R68.83, 780.64) Status: Active Cough (R05, 786.2) Status: Active Dermatitis (L30.9, 692.9) Status: Active History of HI (myocardial infarction) (I25.2, 412) Comments: with Stents sees [facility] twice yearly Status: Active Hypertension (I10, 401.9) Comments: lisinopril Status: Active Influenza A (H1N1) (J10.1, 488.12) Status: Active Nonsmoker (Z78.9, V49.89) Status: Active Medications Name Dates Details ASPIRIN EC, 325MG (Oral Tablet Delayed Release) Active 1 qd (325 MG) CO Q-10, 50MG (Oral Capsule) Active 2 qd (50 MG) Delsym 30 MG/5ML Oral Suspension Extended Release 1 (one) Milliliter q12 for 0 days Quantity: 120 {Milliliter} Refills: 0 Ordered:13-Jun-2018 No Allen CNP, CNP, Mary E Start : 13-Jun-2018 Active Folic Acid 5 MG Oral Capsule daily (5 MG) Active Glucosamine Chondroitin Complx Oral Capsule daily Active LISINOPRIL, 10MG (Oral Tablet) 1 qd (10 MG) Active Magnesium Oxide 250 MG Oral Tablet daily (250 MG) Active Omeprazole 20 MG Oral Tablet Delayed Release daily (20 MG) Active PLAVIX, 75MG (Oral Tablet) 1 qd (75 MG) Active Pravastatin Sodium 80 MG Oral Tablet daily (80 MG) Active Tamiflu 75 MG Oral Capsule 1 (one) Capsule bid for 5 days Quantity: 10 {Capsule} Refills: 0 Ordered:13-Jun-2018 Alejandro DEGROOT, No Patricia CNP, No Pisano Start : 13-Jun-2018 Active Cefdinir 300 MG Oral Capsule 1 Capsule bid for 0 days Quantity: 20 {Capsule} Refills: 0 Ordered:13-Jun-2018 Santo Looney Start : 13-Aug-2011 End : 13-Jun-2018 Inactive PRAVACHOL, 80MG (Oral Tablet) 1 qd (80 MG) Inactive Topicort 0.25 % External Cream tad Cream bid for 0 days Quantity: 15 {gram(s)} Refills: 0 Ordered:13-Jun-2018 Santo Looney Start : 13-Aug-2011 End : 13-Jun-2018 Inactive Comments:use sparingly-- apply to area of irritation - but not directly on wound for 5 days ZETIA, 10MG (Oral Tablet) 1 qd (10 MG) Inactive ZINC GLUCONATE, 50MG (Oral Tablet) 1 qd (50 MG) Inactive Allergies and Adverse Reactions Name Dates Details Darvocet A500 *ANALGESICS - OPIOID* (Allergy) Status: Active Comments: sick Past Medical History Name Dates Details Cellulitis and abscess of leg (L03.119, 682.6) Status: Inactive as of 13-Jun-2018 Wound, open, knee, lower leg, or ankle with complication (S81.009A, 891.1) Status: Inactive as of 13-Jun-2018 Social History Name Dates Details Alcohol Use: Occasional alcohol use. Status: Active Caffeine Use Status: Active Exercise History: Exercises regularly. Status: Active Living Situation: Lives with spouse. Status: Active No Drug Use Status: Active Pets/Animals Comments: none Status: Active Tobacco use: Never smoker. Status: Active Smoking Status Name Dates Details Never smoker Vital Signs Date Test Result Details [id number] Temperature 97.6 f Comments: Method: Temporal Pulse 71 /min Comments: Pattern: Regular Respiration Rate 17 /min Comments: Pattern: Unlabored O2 SAT 95 % Comments: Room air BP Systolic 142 mm[Hg] Comments: Patient Position: Sitting; Cuff Location: Left Arm; Cuff Size: Standard BP Diastolic 84 mm[Hg] Comments: Patient Position: Sitting; Cuff Location: Left Arm; Cuff Size: Standard Weight 140 lb Height 66 in Body Mass Index Calculated 22.6 kg/m2 Body Surface Area Calculated 1.72 m2 :58 Temperature 95.7 f Comments: Method: Oral Pulse 60 /min Comments: Pattern: Regular Respiration Rate 20 /min Comments: Pattern: Unlabored BP Systolic 162 mm[Hg] Comments: Patient Position: Sitting; Cuff Location: Left Arm; Cuff Size: Large BP Diastolic 80 mm[Hg] Comments: Patient Position: Sitting; Cuff Location: Left Arm; Cuff Size: Large Weight 147.125 lb Height 66 in Body Mass Index Calculated 23.75 kg/m2 Body Surface Area Calculated 1.76 m2 Results Date Description Value Details :43 Rapid Flu (44089 x 2) Comments: positive A Influenza A Ag positive- A (Normal) :23 Lipid Profile Comments: Order Date: 04/07/16OV Order #: [id number] [id number] [place], [place], [id number] VLDL 33 mg/dL (Normal) Range: 5-40 LDL 90 mg/dL (Normal) Range: 0-130 HDL 30 mg/dL (Abnormal) Comments: The drugs N-Acetylcysteine and Metamizole may falsely deressthis assay. Reference Range HDL <40 mg/dL Low HDL Cholesterol HDL >or= 60 mg/dL High HDL Cholesterol TRIG 164 mg/dL (Normal) Comments: The drugs N-Acetylcysteine and Metamizole may falsely deressthis assay.Serum Triglycerides Reference Interval Normal <150 mg/dL Borderline high 150 - 199 mg/dL High 200 - 499 mg/dL Very High > or = 500 mg/dL CHOL 153 mg/dL (Normal) Comments: <200 mg/dL Desirable 200-240 mg/dL Borderline >240 mg/dL High Risk :23 Liver Profile Comments: Order Date: 04/07/16OV Order #: [id number] [address] [place], [place], [id number] ; another doc D BILI 0.13 mg/dL (Normal) Range: 0.00-0.30 T BILI 0.70 mg/dL (Normal) Range: 0.20-1.00 ALT 25 U/L (Normal) Range: 12-78 ALK P 102 U/L (Normal) Range: 45-117 AST 16 U/L (Normal) Range: 15-37 GLOB 3.3 g/dL (Normal) Range: 2.3-3.5 ALB 3.7 g/dL (Normal) Range: 3.4-5.0 T PROT 7.0 g/dL (Normal) Range: 6.4-8.2 :19 Lipid Profile Comments: [facility] [id number] [place], [address] VLDL 38 mg/dL (Normal) Range: 5-40 LDL 85 mg/dL (Normal) Range: 0-130 HDL 39 mg/dL (Abnormal) Comments: Reference Range HDL <40 mg/dL Low HDL Cholesterol HDL >or= 60 mg/dL High HDL Cholesterol TRIG 190 mg/dL (Normal) Comments: Serum Triglycerides Reference Interval Normal <150 mg/dL Borderline high 150 - 199 mg/dL High 200 - 499 mg/dL Very High > or = 500 mg/dL CHOL 162 mg/dL (Normal) Comments: <200 mg/dL Desirable 200-240 mg/dL Borderline >240 mg/dL High Risk :19 Liver Profile Comments: [facility] [id number] [place], [place], [id number] D BILI 0.11 mg/dL (Normal) Range: 0.00-0.30 T BILI 0.70 mg/dL (Normal) Range: 0.20-1.00 ALT 29 U/L (Normal) Range: 12-78 ALK P 83 U/L (Normal) Range: 50-136 AST 23 U/L (Normal) Range: 15-37 Comments: Slight Hemolysis, Result may be falsely increased. GLOB 3.0 g/dL (Normal) Range: 2.3-3.5 ALB 3.9 g/dL (Normal) Range: 3.4-5.0 T PROT 6.9 g/dL (Normal) Range: 6.4-8.2 :48 Lipid Profile Comments: [facility] [address] [place], [place], [id number] VLDL 29 mg/dL (Normal) Range: 5-40 LDL 109 mg/dL (Normal) Range: 0-130 HDL 44 mg/dL (Normal) Comments: Reference Range HDL <40 mg/dL Low HDL Cholesterol HDL >or= 60 mg/dL High HDL Cholesterol TRIG 143 mg/dL (Normal) Comments: Serum Triglycerides Reference Interval Normal <150 mg/dL Borderline high 150 - 199 mg/dL High 200 - 499 mg/dL Very High > or = 500 mg/dL CHOL 182 mg/dL (Normal) Comments: <200 mg/dL Desirable 200-240 mg/dL Borderline >240 mg/dL High Risk :48 Liver Profile Comments: [facility] [address] [place], [place], [id number] ; ordered by another doctor D BILI 0.14 mg/dL (Normal) Range: 0.00-0.30 T BILI 0.60 mg/dL (Normal) Range: 0.20-1.00 ALT 27 U/L (Normal) Range: 12-78 ALK P 99 U/L (Normal) Range: 50-136 AST 22 U/L (Normal) Range: 15-37 GLOB 3.3 g/dL (Normal) Range: 2.3-3.5 ALB 4.2 g/dL (Normal) Range: 3.4-5.0 T PROT 7.5 g/dL (Normal) Range: 6.4-8.2 Plan of Care Name Dates Details Instructions History of HI (myocardial infarction) : Follow up if no improvement or if symptoms worsen Indication: History of HI (myocardial infarction) Influenza A (H1N1) : Flu (Influenza) *: influenza Indication: Influenza A (H1N1) Chills : Eprescribed prescriptions (G8553) Indication: Chills Wound, open, knee, lower leg, or ankle with complication : 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 Indication: Wound, open, knee, lower leg, or ankle with complication Planned Procedures CHEST XRAY, PA & LATERAL ([id number])By: On: 13-Jun-2018 Intent No Allen CNP, CNP, Mary E Comments: STAT Chest call to [facility] Eprescribed prescriptions ([id number])By: On: 13-Aug-2011 Intent Ricky BYNUM Jojo Instructions Name Dates Details Chills : How to access health information online Indication: Chills Chills : How to access health information online - Detail Indication: Chills Chills : Patient Instructions Indication: Chills Encounters Office Visit On: 13-Jun-2018 9:35 Encounter Reason: Flu Like Symptoms - Symptoms include fever (low grade fever yesterday), chills and productive cough. Onset was 3 day(s) ago. Associated symptoms include wheezing and shortness of breath. Note for Flu l End: 13-Jun-2018 10:08 grace symptoms: Having some fever and chills 100.1 did not get the flu shot., [ADDITIONAL REASON] Cough - Note for Cough: Pt has been coughing and feverish, feels like pneumonia in past. Encounter Diagnosis: Nonsmoker, BMI 22.0-22.9, adult, Chills , Influenza A (H1N1), History of HI (myocardial infarction), Hypertension, Cough [facility] Office Visit On: 13-Aug-2011 8:58 Encounter Reason: Follow up ER - Reason for hospitalization note: (cut left knee on chain saw at [employer]. Went to er on 08-03-11). Patient has been compliant with instructions. Current medication use: no side effects an End: 13-Aug-2011 17:26 d compliant with dosing regimen. The patient feels well with minor complaints, has good energy level and is sleeping well. Patient sleeps 4 hours per night. Nutrition: inappropriate diet.Encounter Diagnosis: Knee/Leg/Ankle (891.1), Cellulitis/ Abcess of leg (682.6), Dermatitis (692.9) [facility] Payers [employer]/MedicareDavid Winkler; a guarantor
== END ==
PROVIDERS: Family Provider Internal Medicine; PCP Internal Medicine; Referring Provider Nurse Practitioner; Visit Provider Nurse Practitioner
DX: R05 Cough (principal)
CPT/HCPCS: 71046

== ENCOUNTER → 2018-10-31 | Outpatient (CLI) | payer MEDICARE, SELFPAY ==
[2018-08-28 10:38] VITALS: BMI 22.7
[2018-10-31 10:27] LABS: AST(SGOT) 21 U/L (15-37); Alanine Aminotransfer ALT/SGPT 29 U/L (16-61); Alkaline Phosphatase 96 U/L (45-117); Bilirubin, Direct 0.12 mg/dL (0.00-0.30); Cholesterol 144 mg/dL (200); Globulin 3.4 g/dL (2.2-4.2); High Density Lipoprotein 35 mg/dL; Protein, Total 7.4 g/dL (6.4-8.2); Triglycerides 139 mg/dL; Very Low Density Lipoprotein 28 mg/dL (5-40)
== END | disposition home or self-care (01) ==
PROVIDERS: Family Provider Internal Medicine; PCP Internal Medicine; Referring Provider Internal Medicine Cardiovascular Disease; Visit Provider Internal Medicine Cardiovascular Disease
DX: E78.5 Hyperlipidemia, unspecified (principal)
CPT/HCPCS: 36415; 80061; 80076

== ENCOUNTER → 2019-04-30 08:38 | Outpatient (CLI) | payer MEDICARE, SELFPAY ==
[2018-11-01 13:08] VITALS: BMI 22.4
[2019-04-30 10:47] LABS: AST(SGOT) 22 U/L (15-37); Alanine Aminotransfer ALT/SGPT 29 U/L (16-61); Albumin, Serum 4.2 g/dL (3.2-5.0); Alkaline Phosphatase 88 U/L (45-117); Bilirubin, Direct 0.09 mg/dL (0.00-0.30); Cholesterol 164 mg/dL (200); Globulin 3.3 g/dL (2.2-4.2); High Density Lipoprotein 36 mg/dL; Protein, Total 7.5 g/dL (6.4-8.2); Triglycerides 206 mg/dL; Very Low Density Lipoprotein 41 mg/dL (5-40)
== END ==
PROVIDERS: Family Provider Nurse Practitioner; PCP Nurse Practitioner; Referring Provider Internal Medicine Cardiovascular Disease; Visit Provider Internal Medicine Cardiovascular Disease
DX: E78.5 Hyperlipidemia, unspecified (principal)
CPT/HCPCS: 36415; 80061; 80076

== ENCOUNTER 2019-07-15 22:25 | Emergency (ER) | payer MEDICARE, SELFPAY ==
[2019-05-07 13:28] VITALS: BMI 22.5
[2019-07-15 22:25] VITALS: BP 186/90; PULSE 52; RESP 14; TEMP 36.7; O2SAT 99; BMI 22.8
--- NOTE | 2019-07-15 22:28 | EKG12_ITS ---
Test Reason : CP Blood Pressure : / mmHG Vent. Rate : 055 BPM Atrial Rate : 055 BPM P-R Int : 152 ms QRS Dur : 096 ms QT Int : 438 ms P-R-T Axes : 062 002 000 degrees QTc Int : 419 ms Sinus bradycardia with Premature atrial complexes with Aberrant conduction Possible Inferior infarct , age undetermined Abnormal ECG Confirmed by OTONIEL STRATTON ([id number]), photography editor IZZY ZEPEDA ([id number]) on 07/18/2019 2:52:26 PM Referred By: ALEXA PAK Confirmed By:OTONIEL STRATTON
--- NOTE | 2019-07-15 22:28 | RAD_ITS ---
STUDY: X-RAY CHEST REASON FOR EXAM: Male, 83 years old. CHEST PAIN STARTED TODAY LEFT SIDE, STATES FEELS LIKE BEFORE HE HAD STENTS PUT IN LAST TIME TECHNIQUE: Single AP portable view of the chest. COMPARISON: June 13, 2018 FINDINGS: The lungs are clear and expanded. There is no demonstrated pleural abnormality. Normal size heart. Normal mediastinum and betty. Normal visualized pulmonary arteries. There is atherosclerotic calcification of the aortic arch with tortuosity. There are diffuse degenerative changes of the visualized thoracic spine. Normal visualized ribs, clavicles, and shoulders. RAD/Chest 1 View (Portable) IMPRESSION: No acute process Electronically Signed: Mil Julien MD at 23:05 EST , Service support ,
--- NOTE | 2019-07-15 22:28 | ED.RN ---
SUCCESS COACH CALLED FOR EKG, PULLED OLD EKGS FOR
[2019-07-15 22:45] VITALS: PULSE 48; RESP 18; O2SAT 99
[2019-07-15 22:56] LABS: Absolute Lymphocyte Count 2.33 X10^3/uL (0.83-4.51); Absolute Neutrophil Count 3.5 X10^3/uL (2.0-7.7); Basophil# 0.04 X10^3/uL; Basophil% 0.6 % (0-1); Eosinophil# 0.18 X10^3/uL; Eosinophils% 2.5 % (0-5); Hematocrit 46.8 % (40-54); Hemoglobin 15.9 g/dL (13.0-16.5); Lymphocyte # 2.33 X10^3/ul (4.0); Lymphocyte % 32.9 % (19-41); Mean Corpuscular Hgb 30.6 pg (27.0-32.0); Mean Platelet Vol. 10.3 fl (6.2-12.0); Monocyte# 1.01 X10^3/uL; Monocyte% 14.2 % (0-10); NRBC Flagged by Analyzer 0 % (0-5); Neutrophil # 3.52 X10^3/uL (2.7-7.7); Neutrophil % 49.7 % (47-70); Platelet Count 233 K/mm3 (150-450); RBC Distribution Width CV 12.1 % (11.6-14.6); RBC Distribution Width SD 40.4 fl (35.1-43.9); White Blood Count 7.1 K/mm3 (4.4-11.0)
[2019-07-15 23:15] LABS: Anion Gap 7 (5-15); BUN 16 mg/dL (7-18); BUN/Creat Ratio 14.2 RATIO (10-20); Calcium,Total 9.2 mg/dL (8.5-10.1); Chloride 104 mmol/L (98-107); Creatinine, Serum 1.13 mg/dL (0.70-1.30); EST Glomerular Filtration Rate 66 mL/min (>60); Est Glom Filt Rate - Afr Amer 80 mL/min (>60); Estimated Creatinine Clearance 47.05 ml/min; Glucose 92 mg/dL (74-106); Potassium 4.4 mmol/L (3.5-5.1); Sodium Level 139 mmol/L (136-145)
[2019-07-15] MEDS: Mag Hydrox/Al Hydrox/Simeth 30 ML UDC PO (23:58)
[2019-07-15 23:59] VITALS: BP 176/80; PULSE 55; RESP 16; O2SAT 98
[2019-07-16 00:44] VITALS: BP 117/59; PULSE 44; RESP 18; O2SAT 98
--- NOTE | 2019-07-16 00:45 | ED.VIS.CHEST ---
History of Present Illness Chief Complaint: Chest Pain Informant: Patient Onset: Today Activity at onset: Rest Timing: Intermittent, Lasts - 0.5-several hrs Quality: Aching Location: Left Parasternal - without radiation Current Severity: Mild Maximum Severity: Mild Relieved By: - - Exertion, running on treadmill Narrative: Patient presents with intermittent pain in his chest just left of sternum without radiation that has been going on for around 15 or 16 hours. He states he noticed it was worse after eating supper. Earlier in the day when he had it, he went to run on a treadmill which made it resolve. He tried a nitroglycerin out of curiosity, and it did not help at all. He states the pain is relatively mild, and associated with no nausea, dyspnea, diaphoresis, palpitations, lightheadedness, or recent cough illness. States he has a history of coronary disease with a stent that was placed 11 years ago, and he became concerned this may be related to his heart. He has a history of asthma but denies any asthma symptoms today. No recent pain or swelling in his legs, no history of DVT or PE, and he is not anticoagulated although he is on aspirin and Plavix. - Past Medical History (1) Aortic valve disease Status: Chronic (2) Asthma Status: Chronic (3) Atherosclerotic heart disease of [place] coronary artery with other forms of angina pectoris Status: Chronic Comment: ANDREY to RCA 10/28/[address] Loomis (4) Essential hypertension Status: Chronic (5) History of myocardial infarction Status: Chronic (6) Hyperlipidemia Status: Chronic Past Medical History - Allergies and Home Meds Allergies/Adverse Reactions: Allergies Sulfa (Sulfonamide Antibiotics) Adverse Reaction (Intermediate, Verified 05/07/19 13:28) nausea and vomiting isosorbide Adverse Reaction (Verified 05/07/19 13:28) FELIPE Primary Care Physician: No Allen NP-C [Primary Care Provider] - 3-5 Days Surgical History: angioplasty - Coronary stent Lives: Spouse/ Significant Other Smoking Status: Never smoker Review of Systems General: Denies: Chills, Fever, Sweats Eyes: Denies: Visual changes - bilaterally, Diplopia ENT: Denies: Rhinorrhea, Sore throat Cardiovascular: Reports: Chest pain. Denies: Palpitations Respiratory: Denies: Dyspnea, Cough, Dyspnea on exertion Gastrointestinal: Denies: Abdominal pain, Nausea, Vomiting, Diarrhea, Melena, Hematochezia Genitourinary: Denies: Dysuria, Hematuria, Frequency Musculoskeletal: Denies: Back pain, Swelling, Extremity Pain Skin: Denies: Rash, Wounds Neurological: Denies: Headache, Weakness, Numbness Physical Exam Vital Signs/Narrative: Vital Signs Temp Pulse Resp BP Pulse Ox 07/15/19 23:59 55 L 16 176/80 H 98 07/15/19 22:45 48 L 18 99 07/15/19 22:25 98.1 F 52 L 14 186/90 H 99 Inital Vital Signs reviewed: Yes General: Well nourished, Well developed, No Acute Distress Head: Normocephalic, Atraumatic Eyes: Perrl, EOMI ENT: Moist mucous membranes, No rhinorrhea Neck: Supple, Nontender Cardiovascular: Regular rate, Regular rhythm, No murmurs. Negative for: Tachycardia Respiratory: No distress, CTA bilaterally, Chest nontender Abdomen: Soft, Nontender, Nondistended, Normal bowel sounds Back: Nontender, Normal Inspection. Negative for: CVA tenderness Extremities: Nontender, No edema. Negative for: Calf Tenderness Skin: Normal color, No rash Neurological: Alert, Oriented x3, Cranial nerves II-XII grossly intact, Normal Strength, Normal Sensation, Normal Gait Psychological: Normal affect, Normal Mood Diagnostic/Tx/Re-eval Impressions Chest X-Ray 07/15/19 22:28 IMPRESSION: No acute process Electronically Signed: Mil Julien MD at 23:05 EST , Service support , 07/15/19 22:28 Chest 1 View (Portable) [RAD] Stat Laboratory Results 07/15/19 07/15/19 22:37 22:37 WBC 7.1 RBC 5.20 Hgb 15.9 Hct 46.8 MCV 90.0 MCH 30.6 MCHC 34.0 RDW Std Deviation 40.4 RDW Coeff of Silver 12.1 Plt Count 233 MPV 10.3 Immature Gran % (Auto) 0.100 Neut % (Auto) 49.7 Lymph % (Auto) 32.9 [place] % (Auto) 14.2 H Eos % (Auto) 2.5 Baso % (Auto) 0.6 Absolute Neuts (auto) 3.5 Absolute Lymphs (auto) 2.33 Nucleated RBC % 0 Sodium 139 Potassium 4.4 Chloride 104 Carbon Dioxide 28.0 Anion Gap 7 BUN 16 Creatinine 1.13 Estim Creat Clear Calc 47.05 Est GFR (MDRD) Af Amer 80 Est GFR (MDRD) Non-Af 66 BUN/Creatinine Ratio 14.2 Glucose 92 Calcium 9.2 Troponin I < 0.015 - Rhythm Strip Rhythm Strip: Sinus Rhythm Rate: 55 Ectopy: PVC(s) - EKG Initial EKG Interpretation: No Acute Injury Pattern, Sinus Bradycardia, - - PVC. Normal axis. Otherwise normal EKG. Treatment: GI Cocktail Repeat Eval: Pain Free VIVI Risk: Age >/= 65, H/O CAD, ASA within 7 days Score: 3 - Medical Decision Making After GI cocktail, the patient states it made his discomfort go away. His enzymes are negative, and his EKG appears normal without any acute ischemic abnormalities. Although he does have risk for another coronary blockage, I do not think that is what is causing his discomfort tonight. Exertion is making his symptoms go away and they are worse after eating, and his symptoms are atypical for angina, resolved with a GI cocktail. I discussed all this with him, and because of all of that I think it is safe for him to be discharged home with close outpatient follow-up. He is in agreement and comfortable with this overall plan. ED Disposition - Plan for ED Patient: Disposition: Home or Assisted Living Diagnosis: Chest pain, unspecified Instructions: CHEST PAIN, Uncertain Cause Referrals: No Allen, BAO-C [Primary Care Provider] - 3-5 Days
[2019-07-16 00:56] VITALS: BP 169/75; PULSE 63; RESP 15; O2SAT 96
== END 2019-07-16 00:56 | disposition home or self-care (01) ==
PROVIDERS: Emergency Provider Emergency Medicine; PCP Nurse Practitioner
DX: R07.89 Other chest pain (principal); I49.3 Ventricular premature depolarization; I10 Essential (primary) hypertension; I25.2 Old myocardial infarction; I25.10 Atherosclerotic heart disease of native coronary artery without angina pectoris; E78.5 Hyperlipidemia, unspecified; I35.9 Nonrheumatic aortic valve disorder, unspecified; J45.909 Unspecified asthma, uncomplicated; Z95.5 Presence of coronary angioplasty implant and graft; Z79.82 Long term (current) use of aspirin; Z79.02 Long term (current) use of antithrombotics/antiplatelets; Z79.899 Other long term (current) drug therapy
CPT/HCPCS: 71045; 80048; 84484; 85025; 93005; 99285; A4216

== ENCOUNTER → 2020-01-24 08:24 | Outpatient (CLI) | payer MEDICARE, SELFPAY ==
[2020-01-16 15:45] VITALS: BMI 21.6
[2020-01-24 10:33] LABS: AST(SGOT) 23 U/L (15-37); Alanine Aminotransfer ALT/SGPT 28 U/L (16-61); Alkaline Phosphatase 98 U/L (45-117); Bilirubin, Direct 0.15 mg/dL (0.00-0.30); Cholesterol 162 mg/dL (200); Globulin 3.3 g/dL (2.2-4.2); High Density Lipoprotein 34 mg/dL; Protein, Total 7.3 g/dL (6.4-8.2); Triglycerides 159 mg/dL; Very Low Density Lipoprotein 32 mg/dL (5-40)
== END ==
PROVIDERS: PCP Nurse Practitioner; Referring Provider Internal Medicine Cardiovascular Disease; Visit Provider Internal Medicine Cardiovascular Disease
DX: E78.00 Pure hypercholesterolemia, unspecified (principal)
CPT/HCPCS: 36415; 80061; 80076

== ENCOUNTER → 2020-02-28 15:02 | Outpatient (CLI) | payer MEDICARE, SELFPAY ==
[2020-01-16 15:45] VITALS: BMI 21.6
[2020-02-28 18:01] LABS: Potassium 4.4 mmol/L (3.5-5.1)
== END ==
PROVIDERS: PCP Nurse Practitioner; Referring Provider Internal Medicine; Visit Provider Internal Medicine
DX: E87.5 Hyperkalemia (principal)
CPT/HCPCS: 36415; 84132

== ENCOUNTER 2020-03-13 07:29 | Day surgery (SDC) | payer MEDICARE, SELFPAY ==
[2020-03-05 09:45] VITALS: BMI 22.2
--- NOTE | 2020-03-07 13:14 | EKG12_ITS ---
Test Reason : PRE OP Blood Pressure : / mmHG Vent. Rate : 050 BPM Atrial Rate : 050 BPM P-R Int : 146 ms QRS Dur : 096 ms QT Int : 430 ms P-R-T Axes : 007 031 036 degrees QTc Int : 392 ms Sinus bradycardia Otherwise normal ECG Confirmed by MURIEL BADILLO, ANGELA ([id number]), film editor supervisor SKY VIZCARRA ([id number]) on 03/10/2020 8:11:56 AM Referred By: Sam Hernandez Confirmed By:ANGELA LLAMAS MD
[2020-03-07 15:07] LABS: Hematocrit 45.1 % (40-54); Hemoglobin 14.8 g/dL (13.0-16.5); Mean Corp Hgb Conc 32.8 g/dL (32-36); Mean Corpuscular Hgb 30.6 pg (27.0-32.0); Mean Corpuscular Volume 93.4 fL (80-94); Mean Platelet Vol. 11.1 fl (6.2-12.0); Platelet Count 231 K/mm3 (150-450); RBC Distribution Width CV 12.4 % (11.6-14.6); RBC Distribution Width SD 42.8 fl (35.1-43.9); Red Blood Count 4.83 M/mm3 (4.6-6.2); White Blood Count 7.5 K/mm3 (4.4-11.0)
[2020-03-07 15:51] LABS: Anion Gap 2 (5-15); BUN 24 mg/dL (7-18); BUN/Creat Ratio 24.2 RATIO (10-20); Chloride 104 mmol/L (98-107); Creatinine, Serum 0.99 mg/dL (0.70-1.30); EST Glomerular Filtration Rate 77 mL/min (>60); Est Glom Filt Rate - Afr Amer 93 mL/min (>60); Glucose 101 mg/dL (74-106); Sodium Level 136 mmol/L (136-145)
[2020-03-13] VITALS (10 sets, daily range): BP systolic 120–168; BP diastolic 61–78; PULSE 51–70; RESP 16–18; TEMP 36.1–37; O2SAT 96–100; BMI 21.7
--- NOTE | 2020-03-13 07:00 | HP_ITS ---
Intake Vital Signs 03/05/20 BP 172/76 H 03/05/20 Blood Pressure Location Rt brachial 03/05/20 BP 178/68 H 03/05/20 Blood Pressure Location Rt brachial 03/05/20 Position Sitting 03/05/20 BP 183/76 H 03/05/20 Blood Pressure Location Lt brachial 03/05/20 Position Sitting 03/05/20 Height 5 ft 6 in 03/05/20 Weight: 138 lb 03/05/20 BMI 22.2 03/05/20 BP 190/77 H 03/05/20 Blood Pressure Location Rt brachial 03/05/20 Position Sitting 03/05/20 Respiration 18 03/05/20 Pulse 50 L 03/05/20 Pulse Source Monitor 03/05/20 Temp 97.7 F L 03/05/20 Temp Source Temporal 03/05/20 Pulse Oximetry (%) 98 03/05/20 Oxygen Delivery Method room air Intake Visit Reasons: Hernia Controller Coal Or Ore Required: No Is patient in pain?: No (Bilateral groin pain- on and off ) Allergies acetaminophen [From Darvocet-N] Allergy (Unknown, Verified 03/05/20 09:51) unknown propoxyphene [From Darvocet-N] Allergy (Unknown, Verified 03/05/20 09:51) unknown Sulfa (Sulfonamide Antibiotics) Adverse Reaction (Intermediate, Verified 03/05/20 09:51) nausea and vomiting Medications aspirin 325 mg tablet 325 mg PO QDAY 05/25/17 [History Confirmed 03/05/20] coenzyme Q10 100 mg capsule 100 mg PO QDAY 05/25/17 [History Confirmed 03/05/20] glucosamine sulfate 500 mg tablet 500 mg PO QDAY tab 05/25/17 [History Confirmed 01/16/20] magnesium oxide 400 mg PO QDAY cap 05/25/17 [History Confirmed 03/05/20] omeprazole 20 mg capsule,delayed release 20 mg PO QDAY 05/25/17 [History Confirmed 03/05/20] nitroglycerin 0.4 mg sublingual tablet 0.4 mg SUBLINGUAL Q5-15M PRN #25 tab 08/25/18 [Rx Confirmed 03/05/20] folic acid 1 mg tablet 1 mg PO DAILY 08/28/18 [History Confirmed 03/05/20] naproxen sodium 220 mg capsule 220 mg PO BID PRN 08/28/18 [History Confirmed 03/05/20] lisinopril 10 mg tablet 10 mg PO BID #180 tab 03/26/19 [Rx Confirmed 03/05/20] pravastatin 80 mg tablet 80 mg PO QHS #90 tab 03/26/19 [Rx Confirmed 03/05/20] isosorbide mononitrate 30 mg tablet,extended release 24 hr 30 mg PO DAILY #90 tab 12/11/19 [Rx Confirmed 03/05/20] clopidogrel 75 mg tablet 75 mg PO QDAY #30 tab 02/12/20 [Rx Confirmed 03/05/20] calcium carb 800 mg-magnes hydrox 270 mg-simeth 80 mg/10 mL oral susp 10 ml PO BID PRN ml 03/05/20 [History Confirmed 03/05/20] zinc 50 mg tablet 50 mg PO DAILY 03/05/20 [History Confirmed 03/05/20] [facility] Medical History Bilateral groin pain (Acute) Abdominal pain (Acute) Anxiety (Chronic) GERD (gastroesophageal reflux disease) (Chronic) History of rheumatic fever (Chronic) Ventricular tachycardia (Chronic) Essential hypertension (Chronic) Asthma (Chronic) Aortic valve disease (Chronic) Sinus bradycardia (Chronic) Murmur (Chronic) Dyspnea, unspecified (Chronic) manager terminal use of drug (Chronic) Abnormal stress test (Chronic) Chest pain (Chronic) Hyperlipidemia (Chronic) History of myocardial infarction (Chronic) 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 Sam Hernandez MD) Smoking Status: Never smoker second hand exposure: No alcohol intake: current alcohol intake frequency: 0-2 drinks per day Alcohol type: beer, wine substance use type: does not use caffeine: Yes Type: coffee, tea what type of physical activity do you participate in: walking, aerobics, weight training frequency: daily seatbelt use: always HPI HPI Surgical H&P: Yes HPI: RYAN BOWEN, is a 84 M who presents to the office today for Evaluation of bilateral inguinal hernias. Patient has had a right inguinal hernia for many yearsPain is usually worse at night usually goes back in when he lies down without too much difficulty. He has a burning sensation at times. The left inguinal hernia has just come about over the last year or so. It is not as large as a right inguinal hernia. ROS General General: No weight change, appetite, fatigue, colon cancer, breast cancer or weakness HEENT HEENT: No difficulty swallowing, eye injury, eye surgery, swollen glands or hoarseness Endo Endocrine: No thyroid disease, diabetes mellitus, thyroid cancer, Hair loss, heat intolerance or cold intolerance Skin Skin: No rash or changing moles Musc Musculoskeletal: No back problems, arthritis, rheumatoid arthritis, gout or joint pain Cardio Cardiovascular: Yes murmur, heart disease, high blood pressure, heart attack, heart stent and palpitations; no pacemaker, atrial fibrillation, shortness of breat with exertion or chest pain Psych Psychiatric: No depression, anxiety or hearing voices Resp Respiratory: No shortness of breath, No sleep apnea, No cough, No COPD, Yes asthma, No emphysema, No wheezing Gastro Gastrointestinal: Yes abdominal pain, No nausea or vomiting, No diarrhea, No constipation, No blood in stool, No acid reflux, No hemorrhoids, No ulcers, No gallbladder problem, No black,tarry stools Carlos Hematologic: Yes blood thinners, No blood disorders, No bleeding, No anemia, No blood clots Neuro Neurologic: No system reviewed and no additional complaints, except as docu, No as per HPI, No abnormal walking, No abnormal hearing, No abnormal movements, No abnormal speech, No behavioral changes, No burning sensations, No confusion, No seizure-like activity, No unsteadiness, No dizziness, No localized weakness, No frequent falls, No headache(s), No lack of coordination, No loss of vision, No memory loss, No numbness, No other visual disturbances, No radiating pain, No restless legs, No sensory deficit, No fainting, No tingling, No tremor(s), No weakness, No other Exam Const General: no acute distress, well developed, well hydrated Orientation: oriented to person, oriented to place, oriented to time [facility] Head: normocephalic, atraumatic Ears: external ears normal Mouth: moist mucous membranes Eyes Sclera: sclerae normal Pupils: normal by confrontation Neck Neck: no lymphadenopathy noted Neck mass: No Thyroid: thyroid normal, symmetrical Chest Chest palpation & inspection: normal inspection of the chest Resp Effort & Inspection: normal respiratory effort Auscultation: clear to auscultation bilaterally Percussion: percussion normal Cardio Rate: regular rate Rhythm: regular rhythm Heart Sounds: murmur GI Palpation: soft, no hepatosplenomegaly, no masses, tender Rectal Exam: other Other: Bilateral inguinal hernias are identified. They are both easily reducible. Right side is larger than the left side. Rectal exam deferred. Extrem General: normal to inspection, no clubbing, cyanosis or edema Assessment & Plan 1. Non-recurrent bilateral inguinal hernia without obstruction or gangrene K40.20 Plan My plan is to perform a Robotic assisted bilateral laparoscopic inguinal hernia repair. The planned surgical procedure was discussed extensively with the patient. The risks, benefits, anticipated outcomes and possible complication were mentioned. The patient understands that all hernia repair surgery has a chance of recurrence and/or chronic post-operative pain. My staff has also explained the procedure in understandable terms and the patient was given the option to take printed material concerning the planned procedure. The patient had the opportunity to ask questions concerning the planned procedure. The patient freely consents to the planned procedure. The hernias. We also extensively discussed the recurrence based upon how physically active he is after his surgery.We did extensively discuss the possibility of him having postoperative seromas or hematoma formations given the overall size. Coding Level of Care Code Off vis,new,level 3 Diagnoses Non-recurrent bilateral inguinal hernia without obstruction or gangrene K40.20 ??Obstruction and gangrene presence: without obstruction or gangrene ??Recurrence: non-recurrent COVID (Procedure Consent) Procedure Criteria Procedure Criteria: Yes Elective The surgeon/proceduralist and patient have discussed in detail the risk of exposure to and/or potential harm posed by the COVID-19 virus with having a surgery/procedure at this time versus the risk of? delaying the surgery/procedure. It is not possible to know either the risk of delaying the surgery or procedure or chance of getting an infection with perfect accuracy, but a joint decision was made between the patient and the surgeon/proceduralist ?to proceed at this time with the scheduled surgery/procedure as indicated on the consent form. I have re-examined the patient. There are no clinical changes since date of exam.
[2020-03-13] MEDS: Lactated Ringers 1,000 ML 100 ML IV ×3 (08:17→18:14)
[2020-03-13] MEDS: Cefazolin 2 GM in 0.9% Normal Saline 100 ML IV (09:29)
--- NOTE | 2020-03-13 09:37 | OP.PCM_ITS ---
Problem List (1) Bilateral inguinal hernia Status: Acute Qualifiers: Obstruction and gangrene presence: with obstruction but without gangrene Recurrence: non-recurrent Qualified Code(s): K40.00 - Bilateral inguinal hernia, with obstruction, without gangrene, not specified as recurrent Report of Operation Date of Procedure: 03/13/20 Pre-Operative Diagnosis: Bilateral inguinal hernias Post-Operative Diagnosis: Same Surgery/Procedure Performed:: Robotically assisted bilateral inguinal hernias Type of Anesthesia:: General Anesthesiologist: Srinath Blackman Estimated Blood Loss (mL): < 25 cc Description of Procedure: Patient was brought into the operating room. Placed in the supine position. Under excellent general trach intubation the abdomen was sterilely prepped draped in usual fashion. Local was injected above the umbilicus. Dissection was carried down to the fascia the fascia grasped with Oliver varies needle was placed inside the abdomen the abdomen was insufflated to 15 torr. An 8 trocar was placed. It was flank by 2 #8 trochars both placed under direct visualization. No injury to underlying structures was identified. Patient was placed in the headdown position. The robot was brought in and docked appro priately. I then broke scrub and went to the console. Prograsp was then the #2 port in my left hand scissors were in my right hand and the #1 port. I scored the peritoneum dissected down on the right side. I brought in an extremely large right direct inguinal hernia sac. I dissected to the pubic tubercle and then along the Stephen's ligament. I then dissected further laterally dissecting the cord and vessel structures free. I dissected further laterally. Once I had everything delineated I then went to the left side. I scored the peritoneum on the left side dissected down bringing back a large direct inguinal hernia in its entire sac. I dissected pubic tubercle connecting myself to the right side and then along Stephen's ligament. I dissected further laterally dissecting the cord and vessel structures free and then dissected further laterally from that. I had the entire anatomy visualized and virtually no blood loss during this. I fashioned to prograsp mesh into the preperitoneal space. The mesh laid completely flat and I had excellent coverage of both of these direct defects as well as an indirect and femoral defects. I then closed the peritoneum with a 3 OV lock covering the mesh completely. I had to use 3 sutures to do this but none of the mesh was exposed to intra-abdominal areas whatsoever. All 3 sutures were removed at the end. I inspected saw no adhesions trochars were subsequently removed and the skin incisions were closed with interrupted 4-0 Vicryl. Steri-Strips were applied sterile dressings were applied and the patient tolerated the procedure well. - Admit VTE Documentation VTE Present on Admission: No VTE Mechan Device Prophylaxis: SCD's VTE Pharm Prophylaxis ordered?: No Reason prophylaxis not ordered:: Treatment Not Indicated [id number]: [id number] Lap ing hernia repair init - Modifier 50
--- NOTE | 2020-03-13 09:39 | DCINST_ITS ---
Discharge Diet: Light diet - advance as tolerated Discharge Activity: Return to Normal Activity, May Drive - when you are no longer taking narcotic pain medications., May Shower - with the bandage in place 1-2 days after surgery. Lifting Restrictions: 20 pounds for 8 weeks. Additional Activity Instructions:: Climbing stairs is fine, walking is encouraged. Sitting in bed may be uncomfortable. Sitting up using your lateral muscles (sitting up sideways) is usually more comfortable. Do not drive, work heavy equipment of sign legal documents for 24 hours. If your hernia repair was an ingunial repair, you may have scrotal swelling, an ice pack and/or athletic support can provide more comfort. Pain medications may cause nausea, you should typically eat light foods as you take your pain medications. Pain medications may also cause constipation. If you have difficulty with this, discuss with your doctor. Call your doctor if your incision/area has: Continuous Slow Oozing, Sudden Increased Bleeding, Increased Pain/ Swelling, Increased Redness, Foul Smelling Discharge Call your doctor if you observe: Fever of 101 or Higher Suture Line Care: Avoid Pulling/Pushing, Avoid Pinching/Bending Additional Dressing/Incision Instructions:: Leave the operative bandage on for 2-3 days. When you remove the bandage, leave the steri-strips on place until your follow up appointment or they fall off. Allergies/Adverse Reactions: Allergies propoxyphene [From Darvocet-N] Allergy (Unknown, Verified 03/07/20 10:42) unknown Sulfa (Sulfonamide Antibiotics) Adverse Reaction (Intermediate, Verified 03/07/20 10:42) nausea and vomiting Medications to take at Discharge aspirin 325 mg tablet 325 mg PO QDAY 05/25/17 coenzyme Q10 100 mg capsule 100 mg PO QDAY 05/25/17 glucosamine sulfate 500 mg tablet 500 mg PO QDAY tab 05/25/17 magnesium oxide 400 mg PO QDAY cap 05/25/17 omeprazole 20 mg capsule,delayed release 20 mg PO QDAY 05/25/17 nitroglycerin 0.4 mg sublingual tablet 0.4 mg SUBLINGUAL Q5-15M PRN #25 tab 08/25/18 folic acid 1 mg tablet 1 mg PO DAILY 08/28/18 naproxen sodium 220 mg capsule 220 mg PO BID PRN 08/28/18 lisinopril 10 mg tablet 10 mg PO BID #180 tab 11/04/19 pravastatin 80 mg tablet 80 mg PO QHS #90 tab 03/26/19 isosorbide mononitrate 30 mg tablet,extended release 24 hr 30 mg PO DAILY #90 tab 12/11/19 clopidogrel 75 mg tablet 75 mg PO QDAY #30 tab 02/12/20 zinc 50 mg tablet 50 mg PO DAILY 03/05/20 Albuterol IH (ProAir) [Proair Hfa (SP)Vent Pts] 1 - 2 puff INHALATION Q4H PRN PRN 03/07/20 Multivitamin with Minerals [Multiple Vitamin] 1 ea PO DAILY 03/07/20 Oxycodone HCl/Acetaminophen [Percocet 5/325] 1 - 2 tablet PO Q4H PRN PRN 6 Days #30 tablet 03/13/20 The following prescriptions were given: Oxycodone HCl/Acetaminophen [Percocet 5/325] 1 - 2 tablet PO Q4H PRN PRN 6 Days #30 tablet PRN Reason: Pain Transmission Status: Received by [facility]ER[facility] Primary Care Physician: No Allen INSPECTOR MULTIFOCAL LENS, INSPECTOR MULTIFOCAL LENS-C [Primary Care Provider] - Test Results: Test results from this visit will be discussed in further detail at your follow- up appointment, if applicable. Please Follow Up With: Sam Hernandez MD - [phone] When: Plan to have a follow up appointment in 7 days. Call to schedule.
[2020-03-13] MEDS: Bupivacaine Mpf 0.5% 30 ML VIAL (11:26)
[2020-03-13] MEDS: Acetaminophen 325 MG Tablet PO ×2 (13:27→18:00)
[2020-03-13] MEDS: oxyCODONE 5 MG Tablet PO ×2 (13:27→18:00)
== END 2020-03-13 19:09 | disposition home or self-care (01) ==
LOC: SDC 07:29 → AC 07:29
PROVIDERS: Anesthesiology; PCP Nurse Practitioner; Referring Provider Surgery; Visit Provider Surgery
PROC: (CPT 49650; principal; 2020-03-13 09:15)
DX: K40.20 Bilateral inguinal hernia, without obstruction or gangrene, not specified as recurrent (principal); I10 Essential (primary) hypertension; F41.9 Anxiety disorder, unspecified; K21.9 Gastro-esophageal reflux disease without esophagitis; I47.2 Ventricular tachycardia; I25.2 Old myocardial infarction; E78.00 Pure hypercholesterolemia, unspecified; I25.118 Atherosclerotic heart disease of native coronary artery with other forms of angina pectoris; J45.909 Unspecified asthma, uncomplicated; Z95.5 Presence of coronary angioplasty implant and graft; Z79.82 Long term (current) use of aspirin; Z79.899 Other long term (current) drug therapy
CPT/HCPCS: 00840; 49650; S2900; 36415; 80048; 85027; 87635; 93005; C9803; J7120; J2405; U0003

== ENCOUNTER 2020-03-16 11:11 | Emergency (ER) | payer MEDICARE, SELFPAY ==
[2020-03-13 07:58] VITALS: BMI 21.7
[2020-03-16 11:12] VITALS: BP 191/78; PULSE 53; RESP 17; TEMP 36.4; O2SAT 99; BMI 22.2
--- NOTE | 2020-03-16 11:30 | ED.VIS.GEN ---
History of Present Illness Chief Complaint: Complaint Informant: Patient Narrative: 84-year-old male presenting with dysuria status post inguinal hernia repair by Dr. Hernandez on . He states that he had a catheter placed while he was in surgery. He states he has been able to void but complains of dysuria and urinary frequency. He does not have any fever or chills he has no nausea or vomiting. He feels otherwise well. - Past Medical History (1) Anxiety Status: Chronic (2) Aortic valve disease Status: Chronic (3) Asthma Status: Chronic Past Medical History - Allergies and Home Meds Allergies/Adverse Reactions: Allergies propoxyphene [From Darvocet-N] Allergy (Unknown, Verified 03/16/20 11:11) unknown Sulfa (Sulfonamide Antibiotics) Adverse Reaction (Intermediate, Verified 03/16/20 11:11) nausea and vomiting acetaminophen [From Percocet] Adverse Reaction (Verified 03/16/20 11:11) Nausea oxycodone [From Percocet] Adverse Reaction (Verified 03/16/20 11:11) Nausea Primary Care Physician: No Allen VOUCHER EXAMINER, VOUCHER EXAMINER-C [Primary Care Provider] - Prior records reviewed: Yes Past Medical History: - - Reviewed in problem list Surgical History: angioplasty - Coronary stent, - - Hernia repair Smoking Status: Never smoker Review of Systems General: Denies: Chills, Fever, Sweats Eyes: Denies: Visual changes - bilaterally, Diplopia ENT: Denies: Rhinorrhea, Sore throat Cardiovascular: Denies: Chest pain, Palpitations Respiratory: Denies: Dyspnea, Cough, Dyspnea on exertion Gastrointestinal: Reports: Abdominal pain - Suprapubic. Denies: Nausea, Vomiting Genitourinary: Reports: Dysuria, Frequency Musculoskeletal: Denies: Back pain, Extremity Pain Skin: Denies: Rash, Wounds Neurological: Denies: Headache, Weakness, Numbness Physical Exam Vital Signs/Narrative: Vital Signs Temp Pulse Resp BP Pulse Ox 03/16/20 11:12 97.6 F L 53 L 17 191/78 H 99 Inital Vital Signs reviewed: Yes General: Well nourished, No Acute Distress Head: Normocephalic, Atraumatic Eyes: Perrl, EOMI Cardiovascular: Regular rate, Regular rhythm Respiratory: No distress, CTA bilaterally Abdomen: Soft, Nondistended, Tender - Suprapubic tenderness. : - - Penis and scrotum nontender. No rash or lesions. Back: Nontender. Negative for: CVA tenderness Skin: Normal color, No rash Neurological: Alert, Oriented x3 Psychological: Normal affect, Normal Mood Diagnostic/Tx/Re-eval Laboratory Data 03/16/20 11:24 Urine Color Straw Urine Clarity Clear Urine pH 7.0 Ur Specific [place] 1.010 Urine Protein 15 H Urine Glucose (UA) Normal Urine Ketones 5 H Urine Occult Blood 10 H Urine Nitrite Negative Urine Bilirubin Negative Urine Urobilinogen Normal Ur Leukocyte Esterase Negative Urine RBC 0-5 SEEN Urine WBC 0 SEEN Ur Squamous Epith Cells 0 SEEN Urine Bacteria 0 SEEN Urine Mucus 0 SEEN - Medical Decision Making 84-year-old male presenting with dysuria. He is concerned he has UTI after surgery. His urinalysis is negative for infection. He states he is able to void. I believe at this time he needs a Laboy catheter. Impression: 1. Dysuria ED Disposition - Plan for ED Patient: Disposition: Home or Assisted Living Instructions: Dysuria Prescriptions: Tamsulosin HCl [Flomax] 0.4 mg PO DAILY #7 cap Transmission Status: Received by [facility]-[address] Referrals: No Allen VOUCHER EXAMINER, VOUCHER EXAMINER-C [Primary Care Provider] -
[2020-03-16 11:37] LABS: Bacteria 0 SEEN /hpf (None Seen); Mucous, Urine 0 SEEN /hpf (<or=2+); Squamous Epithelial Cells - UA 0 SEEN /hpf (0-5); White Blood Cells 0 SEEN /hpf (0-5)
[2020-03-16 11:38] LABS: Color, Urine Straw (Yellow); Glucose, Dipstick Normal (Normal); Ketone-Dipstick 5 mg/dl (Negative); Leukocyte Esterase-Dipstick Negative /ul (Negative); Nitrite-Dipstick Negative (Negative); Occult Blood-Urine 10 /ul (Negative); Protein-Dipstick 15 mg/dl (Negative); Urine Bilirubin Dipstick Negative (Negative); Urine Clarity Clear (Clear); Urine Urobilinogen Normal (Normal)
[2020-03-16 11:53] LABS: Red Blood Cells-Urine 0-5 SEEN /hpf (0-5)
== END 2020-03-16 12:33 | disposition home or self-care (01) ==
PROVIDERS: Emergency Provider Student in an Organized Health Care Education/Training Program; PCP Nurse Practitioner
DX: R30.0 Dysuria (principal); R35.0 Frequency of micturition; R10.30 Lower abdominal pain, unspecified; Z98.890 Other specified postprocedural states; F41.9 Anxiety disorder, unspecified; J45.909 Unspecified asthma, uncomplicated; Z95.5 Presence of coronary angioplasty implant and graft; Z79.899 Other long term (current) drug therapy
CPT/HCPCS: 81001; 99281

== ENCOUNTER → 2020-05-12 | Outpatient (CLI) | payer MEDICARE, SELFPAY | END | disposition home or self-care (01) | LOC: LABSPEC 15:00 | PROVIDERS: PCP Nurse Practitioner; Referring Provider Urology; Visit Provider Urology | DX: N39.0 Urinary tract infection, site not specified (principal) | CPT/HCPCS: 87077; 87086; 87088; 87186 ==

== ENCOUNTER → 2020-11-10 08:31 | Outpatient (CLI) | payer MEDICARE, SELFPAY ==
[2020-11-10 10:45] LABS: AST(SGOT) 21 U/L (15-37); Alanine Aminotransfer ALT/SGPT 26 U/L (16-61); Alkaline Phosphatase 105 U/L (45-117); Bilirubin, Direct 0.16 mg/dL (0.00-0.30); Cholesterol 163 mg/dL (200); Globulin 3.4 g/dL (2.2-4.2); High Density Lipoprotein 39 mg/dL; Protein, Total 7.4 g/dL (6.4-8.2); Triglycerides 140 mg/dL; Very Low Density Lipoprotein 28 mg/dL (5-40)
== END ==
PROVIDERS: PCP Nurse Practitioner; Referring Provider Internal Medicine Cardiovascular Disease; Visit Provider Internal Medicine Cardiovascular Disease
DX: E78.00 Pure hypercholesterolemia, unspecified (principal); E78.5 Hyperlipidemia, unspecified
CPT/HCPCS: 36415; 80061; 80076

== ENCOUNTER 2021-08-10 09:37 | Outpatient (CLI) | payer MEDICARE, SELFPAY ==
[2021-08-10 12:18] LABS: AST(SGOT) 20 U/L (15-37); Alanine Aminotransfer ALT/SGPT 25 U/L (16-61); Albumin, Serum 4.1 g/dL (3.2-5.0); Alkaline Phosphatase 100 U/L (45-117); Bilirubin, Direct 0.14 mg/dL (0.00-0.30); Cholesterol 139 mg/dL (200); Globulin 3.5 g/dL (2.2-4.2); High Density Lipoprotein 34 mg/dL; Protein, Total 7.6 g/dL (6.4-8.2); Triglycerides 183 mg/dL; Very Low Density Lipoprotein 37 mg/dL (5-40)
== END 2021-08-10 23:59 | disposition home or self-care (01) ==
LOC: MTLAB 09:39
PROVIDERS: PCP Nurse Practitioner; Referring Provider Internal Medicine Cardiovascular Disease; Visit Provider Internal Medicine Cardiovascular Disease
DX: E78.00 Pure hypercholesterolemia, unspecified (principal); E78.5 Hyperlipidemia, unspecified
CPT/HCPCS: 36415; 80061; 80076

== ENCOUNTER 2021-08-25 09:57 | Outpatient (CLI) | payer MEDICARE, SELFPAY ==
[2021-08-25 12:28] LABS: PSA,Total- Diagnostic 5.89 ng/mL (0.0-4.0)
== END 2021-08-25 23:59 | disposition home or self-care (01) ==
LOC: MTLAB 09:58
PROVIDERS: PCP Nurse Practitioner; Referring Provider Urology; Visit Provider Urology
DX: R97.20 Elevated prostate specific antigen [PSA] (principal)
CPT/HCPCS: 36415; 84153

== ENCOUNTER → 2022-07-01 | Outpatient (CLI) | payer MEDICARE, SELFPAY ==
[2022-07-01 11:24] LABS: AST(SGOT) 17 U/L (15-37); Alanine Aminotransfer ALT/SGPT 23 U/L (16-61); Albumin, Serum 3.8 g/dL (3.2-5.0); Alkaline Phosphatase 78 U/L (45-117); Bilirubin, Direct 0.15 mg/dL (0.00-0.30); Cholesterol 147 mg/dL (200); Globulin 3.2 g/dL (2.2-4.2); High Density Lipoprotein 36 mg/dL; Triglycerides 106 mg/dL; Very Low Density Lipoprotein 21 mg/dL (5-40)
== END | disposition home or self-care (01) ==
LOC: MTLAB 08:42
PROVIDERS: PCP Nurse Practitioner Family; Referring Provider Internal Medicine Cardiovascular Disease; Visit Provider Internal Medicine Cardiovascular Disease
DX: E78.00 Pure hypercholesterolemia, unspecified (principal)
CPT/HCPCS: 36415; 80061; 80076

== ENCOUNTER → 2022-07-21 | Outpatient (CLI) | payer MEDICARE, SELFPAY ==
--- NOTE | 2022-07-21 12:30 | STRESSREP_ITS ---
Stress Test Report Date: 07-21-2022 Procedure: Exercise tolerance test/imaging study Indications: Shortness of breath/dyspnea on exertion; CAD; PCI; aortic valve d isorder; hyperlipidemia; hypertension Consent: Per the patient Procedure: The patient exercised on a Lino protocol for 8 minutes completing Stage II and 2 minutes of Stage III achieving a peak heart rate of 123 bpm (91% predicted maximal heart rate) with resting blood pressure of 160/74 mmHg and a peak blood pressure 200/90 mmHg and a peak MET capacity of 10 METs. The baseline ECG demonstrated sinus bradycardia. The peak exercise ECG demonstrated no obvious ECG changes. There was a rare PVC and an isolated ventricular couplet during exercise and a brief episode of ventricular trigeminy in recovery. The functional capacity was considered good. There was no complaint of chest discomfort during exercise or recovery. The examination was discontinued secondary to dyspnea. Impression: 1. Technically adequate (percent predicted maximal heart rate greater than 85%) exercise tolerance test 2. Peak exercise ECG with no obvious ECG changes 3. There was a rare PVC and an isolated ventricular couplet during exercise and a brief episode of ventricular trigeminy in recovery 4. Nuclear images pending Myocardial perfusion imaging study: Technique: The patient was injected with 10.6 mCi of technetium 99m Cardiolite and subsequently rest SPECT Cardiolite nuclear imaging was obtained in the horizontal long, vertical long, and short axis views. The patient exercised on a Lino protocol for 8 minutes completing Stage II and 2 minutes of Stage III achieving a peak heart rate of 123 bpm (91% predicted maximal heart rate) with resting blood pressure of 160/74 mmHg and a peak blood pressure 200/90 mmHg and a peak MET capacity of 10 METs. The patient was injected with 34.1 mCi of technetium 99m Cardiolite and subsequently stress SPECT Cardiolite nuclear imaging was obtained in the horizontal long, vertical long, and short axis views. A gated Cardiolite study at peak stress was obtained. Interpretation: Rest and stress SPECT Cardiolite nuclear imaging status post realignment, normalization, and attenuation correction, demonstrates the appearance preattenuation correction of an area of diminished myocardial perfusion/tracer uptake in portions of the basal to mid inferior segments which appear to be somewhat more prominent following stress as opposed to rest and post attenuation correction the appearance of a post stress area of diminished myocardial perfusion/tracer uptake in portions of the basal to mid inferior segments. There is diminished thickening and brightening. The gated Cardiolite study demonstrates diminished myocardial thickening and inward wall motion in portions of the basal inferior segment. The reported LVEF is 58%. Impression: 1. Rest and stress SPECT Cardiolite nuclear imaging demonstrate myocardial perfusion changes potentially compatible with an area of previous myocardial injury/infarction in portions of the basal towards mid inferior segments with post-stress myocardial perfusion changes appearing compatible with an area of mild quintin-infarct related myocardial ischemia. 2. The gated Cardiolite study reports an LVEF of 58%. Comment: Of note: Compared to the previous stress nuclear imaging study from 05-31-2017: There are similar type changes. This note was generated with [employer] software. It may contain incorrect words, spelling, and punctuation that were not noted in checking the note before signing.
== END | disposition home or self-care (01) ==
LOC: CVS 07:13
PROVIDERS: PCP Nurse Practitioner Family; Referring Provider Physician Assistant Medical; Visit Provider Physician Assistant Medical
DX: I25.118 Atherosclerotic heart disease of native coronary artery with other forms of angina pectoris (principal)
CPT/HCPCS: 78452; 93017; A9500; A4216

== ENCOUNTER → 2023-09-28 | Outpatient (CLI) | payer MEDICARE, SELFPAY ==
[2023-09-28 11:36] LABS: AST(SGOT) 21 U/L (15-37); Alanine Aminotransfer ALT/SGPT 21 U/L (16-61); Albumin, Serum 4.1 g/dL (3.2-5.0); Alkaline Phosphatase 102 U/L (45-117); Bilirubin, Direct 0.17 mg/dL (0.00-0.30); Cholesterol 151 mg/dL (200); Globulin 3.1 g/dL (2.2-4.2); High Density Lipoprotein 37 mg/dL; Protein, Total 7.2 g/dL (6.4-8.2); Triglycerides 125 mg/dL; Very Low Density Lipoprotein 25 mg/dL (5-40)
== END | disposition home or self-care (01) ==
PROVIDERS: PCP Nurse Practitioner Family; Referring Provider Physician Assistant Medical; Visit Provider Physician Assistant Medical
DX: E78.00 Pure hypercholesterolemia, unspecified (principal)
CPT/HCPCS: 36415; 80061; 80076

== ENCOUNTER → 2024-05-08 | Outpatient (CLI) | payer MEDICARE, SELFPAY ==
--- NOTE | 2024-05-08 09:36 | RAD_ITS ---
STUDY: X-RAY CHEST REASON FOR EXAM: Male, 88 years old. CHEST PAIN TECHNIQUE: PA and lateral views of the chest. COMPARISON: Comparison is made with prior study of July 15, 2019. FINDINGS: There is hyperinflation of the lungs consistent with chronic obstructive lung disease (COPD). No acute infiltrate is seen. There is no demonstrated pleural abnormality. Normal size heart. Normal mediastinum and betty. Normal visualized pulmonary arteries. There is atherosclerotic calcification of the aortic arch with tortuosity. There are degenerative changes of the visualized thoracic spine. Normal visualized ribs, clavicles, and shoulders. There is no demonstrated abnormality of the visualized soft tissue structures of the upper abdomen. RAD/Chest PA and Lateral IMPRESSION: Hyperinflation. No acute infiltrate is seen. Electronically Signed: Jonas Elliott MD at 10:09 EST ,
[2024-05-08 12:36] LABS: Erythrocyte Sedimentation Rate 2 mm/hr (0-20)
[2024-05-08 12:38] LABS: Absolute Lymphocyte Count 1.74 X10^3/uL (0.83-4.51); Absolute Neutrophil Count 3.5 X10^3/uL (2.0-7.7); Basophil# 0.05 X10^3/uL; Basophil% 0.8 % (0-1); Eosinophil# 0.15 X10^3/uL; Eosinophils% 2.4 % (0-5); Hematocrit 44.2 % (40-54); Hemoglobin 15.3 g/dL (13.0-16.5); Lymphocyte # 1.74 X10^3/ul (0.83-4.51); Lymphocyte % 27.6 % (19-41); Mean Corp Hgb Conc 34.6 g/dL (32-36); Mean Corpuscular Hgb 31.2 pg (27.0-32.0); Mean Corpuscular Volume 90.2 fL (80-94); Mean Platelet Vol. 10.3 fl (6.2-12.0); Monocyte# 0.82 X10^3/uL; NRBC Flagged by Analyzer 0 % (0-5); Neutrophil # 3.53 X10^3/uL (2.7-7.7); Platelet Count 253 K/mm3 (150-450); RBC Distribution Width CV 12.6 % (11.6-14.6); RBC Distribution Width SD 41.6 fl (35.1-43.9); White Blood Count 6.3 K/mm3 (4.4-11.0)
[2024-05-08 13:14] LABS: ALB/GLOB Ratio 1.1 RATIO (0.9-2.4); AST(SGOT) 26 U/L (15-37); Alanine Aminotransfer ALT/SGPT 37 U/L (16-61); Alkaline Phosphatase 99 U/L (45-117); Anion Gap 5 (5-15); BUN 19 mg/dL (7-18); BUN/Creat Ratio 18.4 RATIO (10-20); Bilirubin, Direct 0.16 mg/dL (0.00-0.30); CRP < 2.90 mg/L (0.0-3.0); Calcium,Total 9.4 mg/dL (8.5-10.1); Chloride 105 mmol/L (98-107); Cholesterol 154 mg/dL (200); Creatinine, Serum 1.03 mg/dL (0.70-1.30); EST Glomerular Filtration Rate 73 mL/min (>60); Est Glom Filt Rate - Afr Amer 88 mL/min (>60); Globulin 3.5 g/dL (2.2-4.2); Glucose 98 mg/dL (74-106); High Density Lipoprotein 46 mg/dL; Potassium 4.3 mmol/L (3.5-5.1); Protein, Total 7.5 g/dL (6.4-8.2); Sodium Level 137 mmol/L (136-145); Triglycerides 88 mg/dL; Troponin-I HS 33 pg/mL (3.0-78.0); Very Low Density Lipoprotein 18 mg/dL (5-40)
== END | disposition home or self-care (01) ==
PROVIDERS: PCP Nurse Practitioner Family; Referring Provider Nurse Practitioner Family; Visit Provider Nurse Practitioner Family
DX: R06.02 Shortness of breath (principal); R07.9 Chest pain, unspecified
CPT/HCPCS: 36415; 71046; 80053; 80061; 82248; 84443; 84484; 85025; 85652; 86140

== ENCOUNTER 2024-05-30 09:04 | Emergency (ER) | payer MEDICARE, SELFPAY ==
[2024-05-30 09:05] VITALS: BP 187/159; PULSE 54; RESP 22; TEMP 36.8; O2SAT 97; BMI 21.9
[2024-05-30 09:28] VITALS: PULSE 48; RESP 12; O2SAT 100
--- NOTE | 2024-05-30 09:30 | EKG12_ITS ---
Test Reason : Blood Pressure : */* mmHG Vent. Rate : 42 BPM Atrial Rate : 42 BPM P-R Int : 156 ms QRS Dur : 96 ms QT Int : 486 ms P-R-T Axes : 46 -11 51 degrees QTcB Int : 405 ms Marked sinus bradycardia with Premature atrial complexes in a pattern of bigeminy Abnormal ECG Confirmed by Larry Loomis ([id number]), loan expeditor SKY VIZCARRA ([id number]) on 05/31/2024 10:18:29 AM Referred By: ROSMERY Confirmed By: Larry Loomis
--- NOTE | 2024-05-30 09:31 | ED.VIS.CHEST ---
HPI History of Present Illness Chief Complaint: Palpitations Informant: patient and spouse/S.O. Narrative Narrative: 88-year-old male history of coronary artery disease presenting to the emergency room with chest discomfort. Patient notes over the past several days he has been getting more short of breath with exertion. He states that intermittently over the same timeframe he has had twinges of pain in the chest jaw and left arm. He states it has not been constant. He states he had a heart attack when he was younger due to rheumatic fever and also had a heart attack in 2008 and had cardiac stents placed at that time. He follows locally with cardiology. He states he had a stress test just a couple years ago that was negative. The patient reports no cough or fever. States it feels that at times his heart beats stronger than normal. He notes his blood pressure now goes up when he has exercise when before it used to go down. He used to see Dr. Kendrick locally that is in transition to see Dr. Loomis later this year. He states that his resting heart rate typically is in the 40s. Lately when he gets up in the morning has been in the 30s and it takes a while for it to become elevated. [facility] Medical History (Updated 05/30/24 @ 12:[address] Sam Henderson, DO) Bradycardia Bilateral groin pain Abdominal pain Essential hypertension Ventricular tachycardia History of rheumatic fever GERD (gastroesophageal reflux disease) Anxiety Asthma Aortic valve disease Sinus bradycardia Murmur Dyspnea, unspecified group home use of drug Abnormal stress test Chest pain Hyperlipidemia Hypertension History of myocardial infarction Atherosclerotic heart disease of [place] coronary artery with other forms of angina pectoris Palpitations Chest pressure Home Medications ?Medication ?Instructions ?Recorded ?Last Taken ?Type aspirin 325 mg tablet 325 mg PO QDAY 05/25/17 Unknown History coenzyme Q10 100 mg capsule (Co 100 mg PO QDAY 05/25/17 Unknown History Q-10) magnesium oxide 400 mg PO QDAY 05/25/17 Unknown History omeprazole 20 mg capsule,delayed 20 mg PO QDAY 05/25/17 03/13/20 06:00 History release 20 MG folic acid 1 mg tablet 1 mg PO DAILY 08/28/18 Unknown History zinc 50 mg tablet 50 mg PO DAILY 03/05/20 Unknown History albuterol sulfate 90 mcg/actuation 1 - 2 puff inhalation Q4H PRN PRN 03/07/20 Unknown History aerosol inhaler Sob &/Or Wheezing amlodipine 5 mg tablet 5 mg PO DAILY #90 tabs 05/26/23 Unknown Rx clopidogrel 75 mg tablet (Plavix) 75 mg PO QDAY #90 tabs 05/26/23 Unknown Rx isosorbide mononitrate 30 mg 30 mg PO DAILY #90 tabs 05/26/23 Unknown Rx tablet,extended release 24 hr lisinopril 10 mg tablet 10 mg PO BID #180 tabs 05/26/23 Unknown Rx pravastatin 80 mg tablet 80 mg PO QHS #90 tabs 05/26/23 Unknown Rx nitroglycerin 0.4 mg sublingual 0.4 mg sublingual Q5-15M PRN chest 09/30/23 Unknown Rx tablet pain #25 tabs Allergy/AdvReac Type Severity Reaction Status Date / Time propoxyphene (From Allergy Unknown unknown Verified 05/30/24 09:08 Darvocet-N) Sulfa (Sulfonamide AdvReac Intermediate nausea and Verified 05/30/24 09:08 Antibiotics) vomiting acetaminophen (From Percocet) AdvReac Nausea Verified 05/30/24 09:08 oxycodone (From Percocet) AdvReac Nausea Verified 05/30/24 09:08 Family History Father CAD (coronary artery disease) Mother CAD (coronary artery disease) Myocardial infarction Diabetes Surgical History History of inguinal hernia repair (~02/2020) History of tonsillectomy and adenoidectomy History of coronary artery stent placement (~10/28/08) Social History Smoking Status: Never smoker second hand exposure: No alcohol intake: current alcohol intake frequency: 0-2 drinks per day Alcohol type: beer and wine substance use type: does not use caffeine: Yes Type: coffee and tea what type of physical activity do you participate in: walking, aerobics and weight training frequency: daily seatbelt use: always ROS ROS ED Constitutional Constitutional ED: Denies chills or weight loss Eyes Eyes: Denies change in vision or diplopia ENT ENT ED: Denies ear pain, rhinorrhea or sore throat Cardiovascular Cardiovascular: Reports chest pain; Denies orthopnea, palpitations or racing heartbeat Respiratory/Chest Respiratory/Chest: Reports dyspnea and dyspnea on exertion; Denies cough or orthopnea Gastrointestinal Gastrointestinal: Denies abdominal pain, diarrhea, nausea or vomiting Genitourinary Genitourinary ED: Denies dysuria, hematuria or urinary frequency Musculoskeletal Musculoskeletal: Denies arthralgias or myalgias Integumentary Denies abscess or rash Neurologic Neurologic: Denies headache(s) or weakness Psychiatric Psychiatric: Denies anxiety, depression, suicidal ideation or suicidal thoughts Endocrine Endocrinology: Denies polydipsia, polyphagia or polyuria Allergic/Immunologic Allergic/Immunologic ED: Denies mouth swelling, tongue swelling or urticaria EXAM Physical Exam Const Vital Signs: 05/30/24 09:05 05/30/24 09:28 05/30/24 11:05 Temperature 98.2 F Temperature Source Temporal Pulse Rate 54 L 48 L 39 L Respiratory Rate 22 H 12 Blood Pressure 187/159 H 157/64 H Blood Pressure Mean 168 95 Pulse Ox 97 100 Oxygen Delivery Method Room Air Room Air 05/30/24 12:00 05/30/24 12:48 Temperature 97.8 F Temperature Source Pulse Rate 39 L 43 L Respiratory Rate 16 Blood Pressure 139/60 H 157/55 H Blood Pressure Mean 86 89 Pulse Ox 100 Oxygen Delivery Method Positive well nourished and well developed General Appearance ED: well developed HEENT Reports normocephalic, head/scalp atraumatic and moist mucous membranes Eyes PERRL and EOMs intact bilaterally Neck no lymphadenopathy, supple and no JVD Resp normal respiratory effort and clear to auscultation bilaterally Cardio regular rate, regular rhythm and no murmurs GI normal to inspection, nondistended, normoactive bowel sounds and non-tender Palpation: soft Back/Spine no CVA tenderness and normal ROM Extremity normal to inspection General Extremety ED: Negative for edema General Extremity: Negative for edema Neuro oriented x3 and CN's II-XII intact bilaterally Sensorium / Orientation: alert Motor Exam: strength 5/5 throughout Psych mental status grossly normal Mood & Affect: Negative for depressed or tearful Skin no rashes or lesions noted and no wounds MDM MDM MDM Narrative Medical decision making narrative: Differential diagnosis includes acute coronary syndrome unstable angina cardiac dysrhythmia electrolyte abnormalities anemia Patient appears to be in a sinus bradycardic rhythm. He has had rates into the mid 30s and up into the 60s with significant variability. 2 sets of cardiac enzymes are negative. Hemoglobin is 15.3 white count is 8.2 sodium potassium within normal limits glucose 116. My independent interpretation of the chest x-ray is no acute process. I discussed the case with Dr. Loomis who reviewed both EKGs. He would like to apply a Holter monitor have the patient follow-up in the office. I discussed this and the above results with the patient and his and they are comfortable with the plan. History & Record Review Discussion w/independent historian: Patient and Significant other Additional record(s) reviewed:: Prior labs Lab Data Attestation: I reviewed the patient's lab results. Labs: Laboratory Results - last 24 hr 05/30/24 05/30/24 09:25 11:30 WBC 8.2 RBC 5.10 Hgb 15.3 Hct 45.9 MCV 90.0 MCH 30.0 MCHC 33.3 RDW Std Deviation 41.9 RDW Coeff of Silver 12.5 Plt Count 234 MPV 10.3 Immature Gran % (Auto) 0.200 Neut % (Auto) 66.9 Lymph % (Auto) 19.8 [place] % (Auto) 10.9 H Eos % (Auto) 1.5 Baso % (Auto) 0.7 Absolute Neuts (auto) 5.5 Absolute Lymphs (auto) 1.63 Nucleated RBC % 0 Sodium 136 Potassium 4.4 Chloride 103 Carbon Dioxide 28.0 Anion Gap 5 BUN 20 H Creatinine 1.09 Estim Creat Clear Calc 42.82 Est GFR (MDRD) Af Amer 82 Est GFR (MDRD) Non-Af 68 BUN/Creatinine Ratio 18.3 Glucose 116 H Calcium 9.9 Troponin I High Sens 31 32 Radiography Diagnostic Testing: Clinical Impression(s) from Imaging Studies Chest X-Ray 05/30/24 09:40 IMPRESSION: No radiographic evidence of acute cardiopulmonary disease and unchanged. Electronically Signed: Demetris Nelson MD at 9:56 EST , EKG Initial EKG: Attestation: I personally reviewed and interpreted this EKG as follows: Comments: Rhythm appears to be a narrow complex bradycardic rhythm at 49 bpm. This may be sinus as there are some beats with what appears to be a atrial beat. Follow-up EKG: Attestation: I personally reviewed and interpreted this EKG as follows: Comments: Sinus bradycardia ventricular rate of 42 bpm. Discharge Plan Triage Chief Complaint: Palpitations ED Provider: Sam Henderson Dx/Rx/DC Orders Clinical Impression: Sinus bradycardia, Chest pain Instructions: Sick Sinus Syndrome, ED Chest Pain, Uncertain Cause Prescriptions: No Action folic acid 1 mg tablet 1 mg PO DAILY zinc 50 mg tablet 50 mg PO DAILY nitroglycerin 0.4 mg tablet, sublingual 0.4 mg SUBLINGUAL Q5-15M PRN (Reason: chest pain) Qty: 25 3RF Rx Instructions: until response; do not exceed 3 doses per event albuterol sulfate 1 PUFF inhaler 1 - 2 puff INHALATION Q4H PRN PRN (Reason: Sob &/Or Wheezing) omeprazole 20 mg capsule,delayed release(DR/EC) 20 mg PO QDAY coenzyme Q10 [Co Q-10] 100 mg capsule 100 mg PO QDAY magnesium oxide 400 mg capsule 400 mg PO QDAY aspirin 325 mg tablet 325 mg PO QDAY Rx Instructions: STOP 1 WEEK PRIOR amlodipine 5 mg tablet 5 mg PO DAILY Qty: 90 3RF clopidogrel [Plavix] 75 mg tablet 75 mg PO QDAY Qty: 90 3RF isosorbide mononitrate 30 mg tablet extended release 24 hr 30 mg PO DAILY Qty: 90 3RF lisinopril 10 mg tablet 10 mg PO BID Qty: 180 3RF pravastatin 80 mg tablet 80 mg PO QHS Qty: 90 3RF Other Ambulatory Orders: Cardiac Holter Monitor, 48 Hrs (Routine) Timeframe: 2 Days Facility: [facility] - Location: Cardiovascular Services Ordered By: Dr. 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
--- NOTE | 2024-05-30 09:40 | RAD_ITS ---
EXAM: XR CHEST, 1 VIEW CLINICAL INDICATION: chest pain TECHNIQUE: Frontal view of the chest. COMPARISON: 05/08/2024. FINDINGS: LUNGS AND PLEURAL SPACES: Unremarkable. No consolidation or edema. No pneumothorax. No effusion. HEART: Unremarkable. Cardiac silhouette not enlarged. MEDIASTINUM: Central airways and mediastinal contour are unremarkable. BONES/JOINTS: Unremarkable. No acute fracture. SOFT TISSUES: Unremarkable. RAD/Chest 1 View (Portable) IMPRESSION: No radiographic evidence of acute cardiopulmonary disease and unchanged. Electronically Signed: Demetris Nelson MD at 9:56 EST ,
[2024-05-30 09:52] LABS: Absolute Lymphocyte Count 1.63 X10^3/uL (0.83-4.51); Absolute Neutrophil Count 5.5 X10^3/uL (2.0-7.7); Basophil# 0.06 X10^3/uL; Basophil% 0.7 % (0-1); Eosinophil# 0.12 X10^3/uL; Eosinophils% 1.5 % (0-5); Hematocrit 45.9 % (40-54); Hemoglobin 15.3 g/dL (13.0-16.5); Lymphocyte # 1.63 X10^3/ul (0.83-4.51); Lymphocyte % 19.8 % (19-41); Mean Corp Hgb Conc 33.3 g/dL (32-36); Mean Platelet Vol. 10.3 fl (6.2-12.0); Monocyte% 10.9 % (0-10); NRBC Flagged by Analyzer 0 % (0-5); Neutrophil % 66.9 % (47-70); Platelet Count 234 K/mm3 (150-450); RBC Distribution Width CV 12.5 % (11.6-14.6); RBC Distribution Width SD 41.9 fl (35.1-43.9); White Blood Count 8.2 K/mm3 (4.4-11.0)
[2024-05-30 10:35] LABS: Anion Gap 5 (5-15); BUN 20 mg/dL (7-18); BUN/Creat Ratio 18.3 RATIO (10-20); Calcium,Total 9.9 mg/dL (8.5-10.1); Chloride 103 mmol/L (98-107); Creatinine, Serum 1.09 mg/dL (0.70-1.30); EST Glomerular Filtration Rate 68 mL/min (>60); Est Glom Filt Rate - Afr Amer 82 mL/min (>60); Estimated Creatinine Clearance 42.82 ml/min; Glucose 116 mg/dL (74-106); Potassium 4.4 mmol/L (3.5-5.1); Sodium Level 136 mmol/L (136-145); Troponin-I HS (w/2H Reflex) 31 pg/mL (3.0-78.0)
--- NOTE | 2024-05-30 10:45 | EKG12_ITS ---
Test Reason : CP Blood Pressure : */* mmHG Vent. Rate : 49 BPM Atrial Rate : * BPM P-R Int : * ms QRS Dur : 76 ms QT Int : 442 ms P-R-T Axes : * -13 67 degrees QTcB Int : 399 ms Junctional rhythm with occasional Premature ventricular complexes and Sinus Bradycardia Nonspecific ST abnormality Abnormal ECG Confirmed by Larry Loomis ([id number]), film editor SKY VIZCARRA ([id number]) on 05/31/2024 10:18:16 AM Referred By: Confirmed By: Larry Loomis
[2024-05-30 11:05] VITALS: BP 157/64; PULSE 39
[2024-05-30 11:37] LABS: Reflex Troponin-HS? (from REC) Y
[2024-05-30 12:00] VITALS: BP 139/60; PULSE 39
[2024-05-30 12:00] LABS: Troponin-I HS 32 pg/mL (3.0-78.0)
[2024-05-30 12:48] VITALS: BP 157/55; PULSE 43; RESP 16; TEMP 36.6; O2SAT 100
== END 2024-05-30 13:27 | disposition home or self-care (01) ==
PROVIDERS: Emergency Provider Emergency Medicine; PCP Nurse Practitioner Family; Visit Provider Emergency Medicine
DX: R07.9 Chest pain, unspecified (principal); I10 Essential (primary) hypertension; R00.1 Bradycardia, unspecified; E78.5 Hyperlipidemia, unspecified; I25.10 Atherosclerotic heart disease of native coronary artery without angina pectoris; R00.2 Palpitations; Z79.899 Other long term (current) drug therapy; K21.9 Gastro-esophageal reflux disease without esophagitis; Z95.5 Presence of coronary angioplasty implant and graft
CPT/HCPCS: 71045; 80048; 84484; 85025; 93005; 93225; 93226; 99284; A4216

== ENCOUNTER → 2024-05-30 | Outpatient (CLI) | payer MEDICARE, SELFPAY | END | disposition home or self-care (01) | LOC: PSN 12:43 | PROVIDERS: PCP Nurse Practitioner Family; Visit Provider Emergency Medicine | DX: R00.2 Palpitations (principal) | CPT/HCPCS: 93225; 93226 ==

== ENCOUNTER → 2024-06-15 | Outpatient (CLI) | payer MEDICARE, SELFPAY ==
--- NOTE | 2024-06-18 11:22 | STRESSREP ---
Stress Test Report Pharmacologic myocardial perfusion stress test. 88-year-old man with a history of bradycardia Resting EKG demonstrates sinus bradycardia with a rate of 43 bpm. Resting blood pressure is 210/88 mmHg. 0.4 mg of regadenoson was infused per usual protocol followed by rapid intravenous saline flush injection. Continuous EKG monitoring was performed. The maximum heart rate was 70 bpm which was 52% of max impacted heart rate the maximum workload was 1 metabolic equivalent. At rest there were no ST or T wave changes noted to suggest ischemia and at peak infusion nonspecific ST changes were noted which did not meet the criteria for ischemia. No clinical angina is noted. The final blood pressure was 162/70 mmHg. Myocardial perfusion protocol. 11.8 mCi of technetium 99m sestamibi was injected at rest. 0.4 mg of regadenoson was infused per usual protocol. At peak infusion 34.9 mCi of technetium 99m sestamibi was injected stress images were obtained stress and rest images were reconstructed and compared in the short axis vertical long and horizontal long axis. Gated images were also obtained. Perfusion SPECT analysis: Review of the stress images demonstrate normal uptake of tracer noted in all areas of the myocardium. The resting images similar demonstrated normal uptake of tracer noted in all areas of the myocardium. No areas of reversibility are noted to suggest ischemia and no previous infarct is noted. Gated SPECT analysis: The gated ejection fraction is 50%. Conclusion: Normal pharmacologic myocardial perfusion stress test. Preserved ejection fraction.
== END | disposition home or self-care (01) ==
LOC: CVS 06:52
PROVIDERS: PCP Nurse Practitioner Family; Referring Provider Physician Assistant Medical; Visit Provider Physician Assistant Medical
DX: R07.9 Chest pain, unspecified (principal); Z95.5 Presence of coronary angioplasty implant and graft
CPT/HCPCS: 78452; 93017; A9500; A4216; J2785

== ENCOUNTER → 2024-10-11 | Outpatient (CLI) | payer MEDICARE, SELFPAY ==
[2024-10-11 12:47] LABS: AST(SGOT) 27 U/L (<=37); Alanine Aminotransfer ALT/SGPT 20 U/L (<=46); Albumin, Serum 3.8 g/dL (3.4-4.8); Alkaline Phosphatase 115 U/L (40-129); Bilirubin, Direct 0.22 mg/dL (0.00-0.30); Cholesterol 170 mg/dL (<=200); Globulin 3.9 g/dL (2.2-4.2); High Density Lipoprotein 41 mg/dL; Low Density Lipoprotein Calc. 104 mg/dL; Protein, Total 7.7 g/dL (5.9-8.4); Total Bilirubin 0.63 mg/dL (0.00-1.30); Triglycerides 126 mg/dL; Very Low Density Lipoprotein 25 mg/dL (5-40); cholesterol:hdl ratio screen 4.12
== END | disposition home or self-care (01) ==
LOC: MTLAB 10:17
PROVIDERS: PCP Nurse Practitioner Family; Referring Provider Physician Assistant Medical; Visit Provider Physician Assistant Medical
DX: E78.00 Pure hypercholesterolemia, unspecified (principal)
CPT/HCPCS: 36415; 80061; 80076